=== PATIENT | female | born 1955 | race Caucasian/White ===

== ENCOUNTER → 2022-07-24 08:20 | Outpatient (BNVA) | payer MEDICARE, BC, SELFPAY | PROVIDERS: Visit Provider Student in an Organized Health Care Education/Training Program | DX: M19.041 Primary osteoarthritis, right hand (principal); M19.042 Primary osteoarthritis, left hand; M85.89 Other specified disorders of bone density and structure, multiple sites; I73.00 Raynaud's syndrome without gangrene | CPT/HCPCS: 36415; 82306; 99202 ==

== ENCOUNTER 2022-07-24 10:05 | Outpatient (REF) | payer MEDICARE, SELFPAY ==
[2022-07-30 12:01] LABS: Vitamin D 25-OH, D2 <4 ng/mL; Vitamin D 25-OH, D3 49 ng/mL; Vitamin D 25-OH, Total 49 ng/mL (30-100)
== END 2022-07-24 10:06 | disposition home or self-care (01) ==
LOC: HO.10HDL 10:05
PROVIDERS: Visit Provider Student in an Organized Health Care Education/Training Program
DX: Z13.89 Encounter for screening for other disorder (principal)
CPT/HCPCS: 36415; 82306

== ENCOUNTER 2025-06-29 13:19 | Outpatient (AMB) | payer MEDICARE, SELFPAY ==
--- OUTSIDE RECORDS SUMMARY | 2025-06-28 10:30 | XMS_ITS | Encounter Summary ---
Author Organization [place] [address] Care Team Providers Care Eap Clinician Name Role Phone Gillian Real MD Primary Care Provider [phone] Reason for Visit * Consultation (Routine) - Authorized Specialty Diagnoses / Procedures Referred By Maya giles Referred To Contact Physical Therapy Diagnoses Strain of muscle, fascia and tendon of lower back, subsequent encounter Salty Lee, [address] [place] [address] Phone: tel: fax: Cruzito Chavira, PT [address] [place] [address] Phone: tel: Referral ID Status Reason Start Date Expiration Date Visits Requested Visits Authorized [id number] Authorized Specialty Services Required 03/24/2025 03/24/2026 16 16 Encounter Details Date Type Department Care Team ([facility] Contact Info) Description 06/28/2025 10:30 AM EDT Treatment Physical Therapy [address] [id number] Cruzito Chavira, PT [address] [place] [address] Social History Tobacco Use Types Packs/Day Years Used Date Smoking Tobacco: Never Smokeless Tobacco: Never Comments Unknown Sex and Gender Information Value Date Recorded Sex Assigned at Not on file Legal Sex Female 8:21 AM EST Gender Identity Not on file Sexual Orientation Not on file documented as of this encounter Plan of Treatment Upcoming Encounters Date Type Department Care Team (Late st Contact Info) Description 08/31/2025 9:00 AM EDT Office Visit Endocrinology - [place] [address] [place] [address] Dave Howard MD [address] [place] [address] documented as of this encounter Goals Goal Patient Goal Type Associated Problems Recent Progress Patient-Stated? Author PT Lumbar spine goals General Yes Cruzito Chavira PT Note: Short term goals: (Time frame: 6 weeks) 1. Independent with the home exercises program (50%) -Pelvic corrections and Trunk Auto- Elongation. 2. Patient will be able to demonstrate conscious posture in sitting/standing/lying down at least 50% of day. 3. Patient will be able to demonstrate correct posture for 2 basic exercise positions. building supervisor goals: (Time frame: 12 weeks) 1. Independent with the home exercise program-100% 2. Patient will be able to demonstrate conscious posture in sitting/standing/lying down > 70% of the day. 3. Patient will be able to demonstrate correct posture for all basic exercise positions. documented as of this encounter Visit Diagnoses Not on filedocumented in this encounter Care Teams Eap Clinician Relationship Specialty Start Date End Date Gillian Real MD [address] [place] [address] PCP - General Internal Medicine 01/14/19 documented as of this encounter
--- OUTSIDE RECORDS SUMMARY | 2025-06-29 13:32 | XMS_ITS | Patient Health Record ---
Author Organization [facility] Address [address] [facility] [facility] [address] [place] [address] Care Team Providers Care Instrumentation Chemist Name Role Phone Gillian Real Primary Care Provider Unavailab le Allergies Allergen (clinical drug ingredient) Drug/Non Drug Allergy documented on EMR Reaction Allergy Type Onset Date Status Steroids Steroids (uncoded) Unknown Allergy A ctive Actifed Unknown Drug Allergy Active ciprofloxacin Cipro Unknown Drug Allergy Act avila Sudafed Unknown Drug Allergy Active lisinopril Lisinopril Coughing/Throat Swelling Drug Allergy Active Non-steroidal anti-inflammatory agent (FN) NSAIDs Unknown Drug Allergy Active Reason For Referral No Information Medications Medication SIG (Take, Route, Frequency, Duration) Notes Start Date End Date Status Tirosint 75 MCG 1 capsule in the mor brie on an empty stomach Orally Once a day Active Amoxicillin 500 MG 1 capsule Orally nathalia ry 8 hrs Active Losartan Potassium 50 MG 1 tablet Orally Once a day Active Econazole Nitrate 1 % 1 application Exte rnally Once a day Active Voltaren 1 % as directed Externally Active CeleBREX 100 MG 1 capsule with food Orally Once a day Active Cleocin-T 1 % 1 application Broadcast Operations Technician ally Twice a day Active Metrogel 1 % 1 application Broadcast Operations Technician ally Once a day Active Calcium Active Ciclopirox 8 % 1 application Broadcast Operations Technician ally to toenails Once a day; Duration: 365 days 03/25/2022 Active Plan Of Treatment No Information Insurance Providers Payer Name Payer Address Payer Phone Subscriber Number Group Number Insured Name Patient Relationship to Insured Coverage Start Date Coverage End Date Medicare of [place] [address] [place] [phone] [id number] Nancy Espinoza Self - patient is the insured [facility] [address] [place] [address] [id number] Nancy Espinoza Self - patient is the insured Medical (General) History Medical History History ICD Code Trochanteric Bursitis B. Tendinitis Shoulder (right) John's Thyroiditis Costochondritis Lumbar Injection - Dr. Shaggy San 01/13 Degenerative Disease Lumbosacral Spine GERD Mild Case of Shingles Surgical History Surgery Date(Month/Year) Section EGD Steroid Injection Back L Shoulder Arthroscopy [facility]
--- OUTSIDE RECORDS SUMMARY | 2025-06-29 13:32 | XMS_ITS ---
Author Name [facility] Organization Unknown History of Medication Use Medication Directions Dispensed Refills Start Date End Date Stat us Tirosint 75 mcg capsule Take 1 capsule (75 mcg total) by mouth 1 (one) time each day. 03/23/2025 active clobetasoL (TEMOVATE) 0.05 % cream APPLY IN THE MORNING AND IN THE EVENING TO REDNESS ON FEET NEEDED 11/18/2024 active clotrimazole-betametha sone (LOTRISONE) 1-0.05 % cream APPLY TOPICALLY TO AFFECTED AREA TWO TIMES A DAY FOR NOT LONGER THAN 2 WEEKS. DO NOT USE WITH ANY OCCLUSIVE DRESSINGS. 11/04/2024 active CeleBREX 100 mg capsule Take 1 capsule (100 mg total) by mouth 1 (one) time each day if needed. 09/30/2024 active estradioL (ESTRACE) 0.01 % (0.1 mg/gram) vaginal cream APPLY 1 GRAM VAGINALLY 3 TIMES PER WEEK DIRECTED 08/18/2024 active triamcinolone (KENALOG) 0.1 % ointment Apply topically. 11/20/2023 active hydroquinone 4 % emulsion Apply 1 Application topically. 10/19/2023 active gabapentin (NEURONTIN) 100 mg capsule Take 1 capsule TID. 12/30/2022 active acetaminophen (TYLENOL) 325 mg tablet Take 2 tablets (650 mg total) by mouth every 6 hours as needed. 11/17/2022 active clindamycin (Cleocin T) 1 % lotion Apply topically. 09/15/2022 activ e ECONAZOLE NITRATE TOP Apply topically. active calcium carbonate-vitamin D3 1,000 mg-20 mcg (800 unit) tablet Take 1 tablet by mouth. 04/16/2007 active calcium carbonate-vit D3-min 600 mg-10 mcg (400 unit) tablet Take 600 mg by mouth. active cholecalciferol (VITAMIN D-3) 50 mcg (2,000 unit) capsule Take 1 capsule (2,000 Units total) by mouth 1 (one) time each day. active Allergies Allergen Reaction Severity Comment Documented Date Source Statu s CIPROFLOXACIN 03/23/2025 [facility] acti ve NSAIDS (NON-STEROIDAL ANTI-INFLAMMATORY DRUG) 03/23/2025 [facility] a ctive PSEUDOEPHEDRINE HCL 03/23/2025 [facility] N active Problems Problem Status Onset Date Problem Type Date of Resolution Source Scoliosis of thoracolumbar spine, unspecified scoliosis type active EncounterDiagnosisAct CT_T HSFRAN Strain of muscle, fascia and tendon of lower back, subsequent encounter active 2025-05-02 ProblemAct [facility] S/P lumbar spinal fusion active EncounterDiagnosisAct CT_THS ALFREDO Encounters Encounter Type Encounter Reason Primary Diagnosis Location Date Ambulatory [facility] [place]/28/2025 Ambulatory Strain of muscle, fascia and tendon of lower back, subsequent encounter Strain of muscle, fascia and tendon of lower back, subsequent encounter [facility] 04/28/2025 Care Team Organization Name Specialty Phone Email Start Date End Da te [facility] 04/28/2025 [facility] 04/28/2025
--- OUTSIDE RECORDS SUMMARY | 2025-06-29 13:32 | XMS_ITS | Patient Health Record ---
[facility] Address [address] [place] [address] Care Team Providers Care Beauty Consultant Name Role Phone Gillian Real MD Primary Care Provider Viktoria Cruz Unavailable [phone] Allergies Allergen (clinical drug ingredient) Drug/Non Drug Allergy documented on EMR Reaction Allergy Type Onset Date Status nsaids - prednisone,steroids,s udafed,lisopril (uncoded) rash Allergy Active ibuprofen Advil Unknown Drug Allergy Active Aleve Unknown Drug Allergy Active aspirin Aspirin Unknown Drug Allergy Active ciprofloxacin Cipro rash Drug Allergy Act avila Motrin Unknown Drug Allergy Active Reason For Referral No Information Medications Medication SIG (Take, Route, Frequency, Duration) Notes Start Date End Date Status Calcium 600 MG 1 tablet with meals Orally Twice a day; Duration: 30 day(s) Active Daily Vitamin Active Losartan Potassium 50 MG 1 tablet Orally Once a day; Duration: 30 day(s) Active Social History Tobacco Use: Social History Observation Description Date Details (start date - stop date) Never Smoker NA - NA Tobacco Use/Smoking Question Answer Notes Are you a: nonsmoker Alcohol Screen Question Answer Notes Did you have a drink containing alcohol in the p ast year? No Points 0 Interpretation Negative Tobacco use other than smoking: Question Answer Notes Are you an other tobacco user? No Problems Problem Type SNOMED Code ICD Code Onset Dates Problem Status W/U Status Risk Notes Problem Acquired hammer toe of right foot (5590562874918 105) Other hammer toe(s) (acquired), right foot (M20.41) Active confirmed Plan Of Treatment Pending Test Test Name Order Date [id number] NAIL, 1-5 04/05/2019 Insurance Providers Payer Name Payer Address Payer Phone Subscriber Number Group Number Insured Name Patient Relationship to Insured Coverage Start Date Coverage End Date [facility] [address] [facility] [place], [place] [address] [phone] [id number] Nancy Espinoza Self - patient is the insured Medical (General) History Medical History History ICD Code High blood pressure Surgical History Surgery Date(Month/Year) shoulder surgery 2006
--- OUTSIDE RECORDS SUMMARY | 2025-06-29 13:32 | XMS_ITS | Encounter Summary ---
Author Organization [facility] Address [address] [place] [address] Phone Care Team Providers Care Workers Compensation Paralegal Name Role Phone Gillian Real MD Primary Care Provider [phone] Reason for Visit * Auth/Cert (Routine) Specialty Diagnoses / Procedures Referred By Contac t Referred To Contact Diagnoses Gastroesophageal reflux disease with esophagitis, unspecified whether hemorrhage Gastroesophageal reflux disease with esophagitis, unspecified whether hemorrhage [K21.00] Procedures IL ESOPHAGEAL MOTILITY STUDY, MANOMETRY ESOPHAGEAL MANOMETRY WITH IMPEDANCE HIGH RESOLUTION Referral ID Status Reason Start Date Expiration Date Visits Re quested Visits Authorized [id number] 1 1 Encounter Details Date Type Department Care Team (Late st Contact Info) Description 05/09/2025 Hospital Encounter [facility] Admitting Dept Virtual Department [address] [place] [address] Luis M Reinoso MD [address] [place] [phone] Social History Tobacco Use Types Packs/Day Years Used Date Smoking Tobacco: Never Assessed Education Answer Date Recorded Are you interested in more education? Not on jony e 03/06/2023 Are you concerned about learning? Not on file 03/06/2023 No 03/06/2023 No 03/06/2023 Digital Access Answer Date Recorded No 04/04/2023 No 04/04/2023 No 04/04/2023 Reliable internet access at home? Not on file 04/04/2023 Device with a working camera? Not on file Comments Unknown Sex and Gender Information Value Date Recorded Sex Assigned at Female 05/19/2022 3:12 PM EDT Legal Sex Female 2:14 PM EST Gender Identity Female 05/19/2022 3:12 PM EDT Sexual Orientation Straight 05/19/2022 3: 12 PM EDT documented as of this encounter Plan of Treatment Not on file documented as of this encounter Visit Diagnoses Not on filedocumented in this encounter Care Teams Workers Compensation Paralegal Relationship Specialty Start Date End Date Gillian Real MD [address] [address] PCP - General Internal Medicine 10/22/18 documented as of this encounter Additional Source Comments The information contained in this document represents components of the legal health record. It is not the complete legal health record.[facility]
[2025-06-29 13:39] VITALS: BMI 25.9
--- NOTE | 2025-06-29 13:39 | HO.SPINEOV ---
Vital Signs 06/29/25 13:39 Height 5 ft 3 in Weight 146 lb BMI 25.9 Intake Visit Reasons: LBP Intake Note: Mrs. Espinoza is here today c/o back pain and difficulty walking. Health Promotion Officer Required: No Allergies lisinopril Allergy (Unknown, Verified 06/29/25 13:39) cough, throat swelling ciprofloxacin (From Cipro) Adverse Reaction (Unknown, Verified 06/29/25 13:39) Unknown NSAIDS (Non-Steroidal Anti-Inflamma Adverse Reaction (Unknown, Verified 06/29/25 13:39) Unknown pseudoephedrine (From Actifed) Adverse Reaction (Unknown, Verified 06/29/25 13:39) Unknown triprolidine (From Actifed) Adverse Reaction (Unknown, Verified 06/29/25 13:39) Unknown Surgical Tape Allergy (Severe, Uncoded 06/29/25 13:44) Rash steroids Adverse Reaction (Unknown, Uncoded 07/24/22 08:26) Unknown Physical Exam Vital Signs: BMI result Body Mass Index 25.9 Assessment & Plan Assessment & Plan (1) Scoliosis (and kyphoscoliosis), idiopathic: Code(s): M41.20 - Other idiopathic scoliosis, site unspecified Category: Medical Plan Dear Dr Lee, Thank you for referring Mrs Espinoza to our office today. She is a somewhat complicated 69-year-old female with history of scoliosis, status post L5-S1 posterior lumbar interbody fusion done at [facility] by Dr. Chatterjee in 2022. That procedure was done for feeling of weakness in her right leg and back pain. After the procedure she experienced significant improvement in the back pain and the feeling in her right leg, however over the course of her recovery she is starting to notice increase in pain in other regions. Specifically the right SI joint, and whole back discomfort starting in the lumbar region radiating upward to her upper lumbar levels into the lower thoracic area. It has gradually gotten worse. She has had to accommodate for this with a brace which she uses every day as the day goes on. She also takes Celebrex, Tylenol. She underwent SI joint injections in the form of lateral branch blocks and did amazing with these. It definitely helped the SI joint pain with 100% relief for about 6 weeks or so. She comes in today for evaluation not only of her SI joint but is wondering if Dr. Pennings can do a scoliosis correction on her. She has no lower extremity radicular symptoms. All of her symptoms get aggravated with standing and walking. She has to hold onto the shopping cart to get through the grocery store etc.. PMH: History of hypertension, hypothyroidism, esophageal dysmotility, lumbar fusion L5-S1, right hip replacement, left shoulder repair. She does not report any history of cardiopulmonary disease, renal or liver disease. No history of cancer blood clots or major abdominal surgeries other than a section. Social hx: She has not smoke, drink use any recreational drugs Medications: Losartan, Tylenol, Celebrex, famotidine, thyroid replacement Allergies: Please see the [employer]Voc[employer] list Physical exam: Awake alert oriented no acute distress, very slow to stand up she walks with a kyphotic curvature in his scoliotic positioning. She has full strength of bilateral lower extremities, diminished reflexes at the patella and the Achilles. She has well healed scars in her midline lumbar as well as what look like lateral stab incisions. Imaging review: She has multiple images to review. Firstly, she has a lumbar MRI done at [facility] showing postsurgical changes at L5-S1 with what looks like good positioning of the hardware, 2 interbody cages consistent with a posterior lumbar interbody fusion. No residual central or foraminal stenosis seen. Starting above that, she develops a scoliotic curvature which appears to have the apex somewhere around L1. There is lateral listhesis of L1 on L2. She did bring a set of x-rays from [facility] with standing scoliosis imaging and this confirms it looks as though the bottom part of the thoracic spine maybe involved as well in the scoliosis. Impression: 69-year-old female presents for evaluation of 2 separate issues. The 1st reason she is here and the reason that she was sent for consult is her right SI joint has been acting up ever since she had the L5-S1 fusion at [facility]. This is responded beautifully to lateral branch blocks but unfortunately she tells me that ablation of the nerve is not permitted through her insurance so she is coming today to be evaluated for right SI joint fusion. She has had multiple injections with near 100% relief for at least [address] Hogan would agree that she is a good candidate for that. We did discuss that procedure at length including risks, benefits as well as recovery. She understands she would need to be on crutches or walker for 3 weeks for healing. With regard to the scoliosis correction, things get a little more complicated because she does have a history of osteopenia and based on the x-rays it looks to me more like in the direction of osteoporosis. I would need to get a CAT scan noncontrast lumbar spine to evaluate the integrity of her bones and I can review this with Dr. Hogan to see if he thinks she would be a good candidate for scoliosis correction. Once the CAT scan is completed, I will bring her back in the office to meet Dr. Hogan preoperatively for her SI joint fusion, and at that time they can discuss her CAT scan and see whether or not he believes she is a candidate for scoliosis correction. Thank you for allowing us to care for your patient. The total time spent with this visit with this patient was 65 minutes reviewing history, physical exam, lumbar imaging review, and implementation of treatment plan or further diagnostic testing Salty Hogan MD,PhD [facility] Orders: Orders CT lumbar spine wo IV con Today M41.20 - Other idiopathic scoliosis, site unspecified Coding Level of Care Code New Pt Level 5 (01237) Diagnoses Scoliosis (and kyphoscoliosis), idiopathic M41.20
== END 2025-06-29 15:35 | disposition home or self-care (01) ==
LOC: HO.HNS 13:20
PROVIDERS: Referring Provider Physical Medicine & Rehabilitation; Visit Provider Physician Assistant
DX: M41.20 Other idiopathic scoliosis, site unspecified (principal)
CPT/HCPCS: 99205

== ENCOUNTER → 2025-06-29 13:19 | Outpatient (BNVA) | payer MEDICARE, SELFPAY | PROVIDERS: Referring Provider Physical Medicine & Rehabilitation; Visit Provider Physician Assistant | DX: M41.20 Other idiopathic scoliosis, site unspecified (principal) | CPT/HCPCS: 99202 ==

== ENCOUNTER 2025-09-15 07:33 | Outpatient (REF) | payer MEDICARE, SELFPAY ==
--- OUTSIDE RECORDS SUMMARY | 2025-03-28 08:15 | XMS_ITS | Continuity of Care Document ---
Author Organization [facility] Address [address] [place] [address] Phone Care Team Providers Care Preschool Program Director Name Role Phone Tan LAWSON, RVT, RPDEMETRIS, Jose Manuel Unavailable U navailable Allergies, Adverse Reactions, Alerts Substance Reaction Status Criticality prednisone Active No Information PSEUDOEPHEDRINE HCL Active No Infor mation lisinopril Active No Information ciprofloxacin Active No Information Medications Medication Instructions Dosage Effective Dates (start - stop) Status Comments losartan 50 mg tablet - Active Tirosint 75 mcg capsule - Active Procedures Procedure Date Duplex Scan-extrem Veins; Uni/ CT & [place] M Inj Scleros Solut; Mx Veins 1- CT & [place] M Ultrason Guidan Needle Bx-rad- CT & [place] M Office/Outpt E&M Established 15 Mins- CT & [place] Duplex Scan-extrem Veins; Comp- CT & [place] Office/Outpt E&M Established 15 Mins- CT & [place] Duplex Scan-extrem Veins; Comp- CT & [place] Duplex Scan-extrem Veins; Uni/ CT & [place] D Inj Scleros Solut; Mx Veins 1- CT & [place] D Ultrason Guidan Needle Bx-rad- CT & [place] D Duplex Scan-extrem Veins; Uni/ CT & [place] N Inj Scleros Solut; Mx Veins 1- CT & [place] O ct Ultrason Guidan Needle Bx-rad- CT & [place] O ct Duplex Scan-extrem Veins; Uni/ CT & [place] O ct Varithena, Single Truncal Vein - CT & [place] Office/Outpt E&M Established 15 Mins- CT & [place] Duplex Scan-extrem Veins; Comp- CT & [place] No Charge For Services Advance Directives Directive Yes / No Effective Date File Name No Information Encounters Encounter Description Practice Location Reason(s) For Visit Diagnoses Date Provider Providers Copied on Encounter [facility], [address] [place] [address] Joey [address], [id number], tel:[phone] [facility] - [place] [facility] Encounter for follow-up examination after completed treatment for conditions other than malignant neoplasmVaricos e veins of left lower extremity with pain 5 Tan LAWSON RVT, JUSTO Richard. [address] [place] [address], [place], [place], [id number] , [place]. tel:[phone] Referring Provider: Gillian Real MD, [address] [place] [address], [address]. tel:[phone] [facility], [address] [place] [address] [address] [address], [id number], [place] tel:[phone] [facility] Varicose veins of left lower extremity with other complications 5 Tan LAWSON RVT, RPVI Robert. [address] [place] [address], [facility] [place], [id number] , [place]. tel:[phone] Referring Provider: Gillian Real MD, [address] [place] [address], [address]. tel:[phone] Office/Outpt E&M Established 15 Mins- [place] & [place] [facility], [address] [place] [address] Joey [address], [id number], tel:[phone] [facility] [place] [facility] Localized edemaPhlebitis and thrombophlebiti s of superficial vessels of left lower extremityVenous insufficiency (chronic) (peripheral)Lym phedema, not elsewhere classifiedEssen tial (primary) hypertension 5 Tan LAWSON RVT, JUSTO Richard. [address], [place], [id number] , [place]. [phone] Referring Provider: Gillian Real MD, [address], [facility]. tel:[phone] [facility], [address] [place] [address] Dr [address], [id number], [place] tel:[phone] [facility] - [facility] Chronic venous hypertension (idiopathic) with other complications of bilateral lower extremity 5 Tan LAWSON RVT, JUSTO Richard. [address], [place] [address], [place], [id number] , [place]. tel:[phone] Referring Provider: Gillian Real MD, [address], [facility]. tel:[phone] Office/Outpt E&M Established 15 Mins- [place] & [place] [facility], [address] [place] [address] Dr [address], [id number], [place] tel:[phone] [facility] Localized edemaVenous insufficiency (chronic) (peripheral)Pru ritus, unspecifiedEsse ntial (primary) hypertension 5 Tan LAWSON RVT, JUSTO Richard. [address], [address], [place], [id number] , [place]. [phone] Referring Provider: Gillian Real MD, [address], [facility]. tel:[phone] [facility], [address] [place] [address] Dr [address], [id number], [place] tel:[phone] [facility] Chronic venous hypertension (idiopathic) with other complications of bilateral lower extremity 5 Tan LAWSON RVT, RPVI Robert. [address] [place] [address], [place], [place], [id number] , [place]. [phone] Referring Provider: Gillian Real MD, [address] [place] [address], [facility]. tel:[phone] [place] [facility], [address] [place] [address] [facility] [address] [place], [id number], [place] [phone] [facility] for follow-up examination after completed treatment for conditions other than malignant neoplasmVaricos e veins of left lower extremity with pain 4 Tan LAWSON RVT, RPVI Robert. [address] [place] [address], [place], [place], [id number] , [place]. tel:[phone] Referring Provider: Gillian Real MD, [address] [place] [address], [facility]. tel:[phone] [place] [facility], [address] [place] [address] [facility] [place], [id number], [place] tel:[phone] [facility] Varicose veins of left lower extremity with other complications 4 Tan LAWSON RVT, RPVI Robert. [address] [place] [address], [id number] , [place]. tel:[phone] Referring Provider: Gillian Real MD, [address], [facility]. tel:[phone] [place] [facility], [address] [place] [address] Dr [address] [place], [id number], [place] tel:[phone] [facility]counter for follow-up examination after completed treatment for conditions other than malignant neoplasmPain in right lower leg 4 Tan LAWSON RVT, RPVI Robert. [address] [place] [address], [facility], [place], [id number] , [place]. tel:[phone] Referring Provider: Gillian Real MD, [address] [place] [address], [address]. tel:[phone] [place] [facility], [address] [place] [address] Dr [address] 1000[place], [id number], [place] tel:[phone] [facility] - [place] [facility] Varicose veins of right lower extremity with other complications Oct-3 0- 4 Tan LAWSON RVT, JUSTO Richard. [address] [place] [address], [facility], [place], [id number] , [place]. tel:[phone] Referring Provider: Gillian Real MD, [address] [place] [address], [address]. tel:[phone] [place] [facility], [address] [place] [address] [facility] [address] [address], [id number], [place] [phone] [facility] - [place] [facility] Encounter for follow-up examination after completed treatment for conditions other than malignant neoplasmVaricos e veins of right lower extremity with pain Oct-3 0- 4 Tan LAWSON RVT, JUSTO Richard. [address] [place] [address], [facility], [place], [id number] , [place]. [phone] Referring Provider: Gillian Real MD, [address] [place] [address], [address]. tel:[phone] [place] [facility], [address] [place] [address] [address] 1000[place], [id number], [place] tel:[phone] [facility] [place] [facility] Varicose veins of right lower extremity with other complications Oct-2 4 Tan LAWSON RVT, JUSTO Richard. [address] [place] [address], [facility], [place], [id number] , [place]. [phone] Referring Provider: Gillian Real MD, [address] [place] [address] [place] [address], [address]. tel:[phone] Office/Outpt E&M Established 15 Mins- CT & [place] [facility], [address] [place] [address] Dr [address] [address], [id number], tel:[phone] [facility] - [place] [facility] Essential (primary) hypertensionVen ous insufficiency (chronic) (peripheral)Pru ritus, unspecifiedChro nasir venous hypertension (idiopathic) with other complications of bilateral lower extremityLymphe brayan, not elsewhere classified 4 Tan LAWSON, PKT, JUSTO Richard. [address] [place] [address], [place], [place], [id number] , [place]. [phone] Referring Provider: Gillian Real MD, [address] [place] [address], [facility]. tel:[phone] [place] [facility], [address] [place] [address] Dr [address] [place], [place] [address], [id number], [place] tel:[phone] [facility] Chronic venous hypertension (idiopathic) with other complications of bilateral lower extremity 4 Tan LAWSON RVT, JUSTO Richard. [address] [place] [address], [facility] [place], [id number] , [place]. tel:[phone] Referring Provider: Gillian Real MD, [address] [place] [address], [address]. tel:[phone] [place] [facility], [address] [place] [address] Dr [address] [address], [id number], [place] tel:[phone] [facility] Encounter for cosmetic surgery 3 Juan LAWSON FACS ELVIS Eaton. [address] [place] [address], [place], [address], [place]. tel:[phone] Referring Provider: Gillian Real MD, [address] [place] [address], [address]. tel:[phone] Family History Family Member Type Diagnosis Age At Onset No Information Payers Payer name Insurance type Covered libertarian ID Authoriza tiana(s) Medicare [place] XOCHITL [id number] BCBS [place] LISA [id number] Social History Type Description Quantity Date Captured Comments Sex Female Smoking Status No Information Chief Complaint And Reason For Visit No Information Reason For Referral Reason For Referral No Information Plan Of Treatment Date Type Action Status Goal Diet education completed Goal Diet education completed Goal Diet education completed Goal Tobacco cessation counseling completed Referral Ordered: Weight management: Referral to physician timeframe: 3 Months (related to Body mass index (BMI) 26.0-26.9, adult) ordered Referral Ordered: Weight management: Referral to physician timeframe: 3 Months (related to Body mass index (BMI) 26.0-26.9, adult) ordered Referral Ordered: Weight management: Referral to physician timeframe: 3 Months (related to Body mass index (BMI) 26.0-26.9, adult) ordered History Of Present Illness Encounter Date Complaint History Of Prese nt Illness No Information Functional Status Date Functional Assessmen t No Information Instructions Date Instruction Additional Infor ayo Pre and post instruc tions reviewed and provided Related to Localized edema Patient education booklet given Related to Localized edema Lifestyle education Related to B vini mass index (BMI) 26.0-26.9, adult Giving Encouragement to exercise Related to Body mass index (BMI) 26.0-26.9, adult Diet education Related to Body mass index (BMI) 26.0-26.9, adult Lifestyle education Related to B vini mass index (BMI) 26.0-26.9, adult Giving Encouragement to exercise Related to Body mass index (BMI) 26.0-26.9, adult Diet education Related to Body mass index (BMI) 26.0-26.9, adult Compression stocking usage as conservative measure Related to Localized edema Pre and post instruc tions reviewed and provided Related to Localized edema Patient education booklet given Related to Chronic venous hypertension (idiopathic) with other complications of bilateral lower extremity Giving Encouragement to exercise Related to Body mass index (BMI) 26.0-26.9, adult Lifestyle education Related to B vini mass index (BMI) 26.0-26.9, adult Diet education Related to Body mass index (BMI) 26.0-26.9, adult Assessments Type Assessment Date No Information Patient Care Teams Name Effective Dates (start - stop) Status Members No Information
--- OUTSIDE RECORDS SUMMARY | 2025-09-12 09:30 | XMS_ITS | Encounter Summary ---
Author Organization [facility] [place] [address] Care Team Providers Care Certified Dietary Manager Name Role Phone Julisa Olvera MD Primary Care Provider [phone] Reason for Visit * Reason Comments Follow-up Left side rib pain s moustapha 2 weeks ago Encounter Details Date Type Department Care Team (Late st Contact Info) Description 09/12/2025 9:30 AM EST Office Visit Internal Medicine - [place] [address] [place] [id number] Julisa Olvera MD [address] [place], [place] [id number] Fracture of left ninth rib (Primary Dx); White coat syndrome with diagnosis of hypertension Social History Tobacco Use Types Packs/Day Years Used Date Smoking Tobacco: Never Smokeless Tobacco: Never Alcohol Use Standard Drinks/Week Comments Never 0 (1 standard drink = 0.6 oz pur e alcohol) Housing Instability Answer Date Recorde d Are you worried that in the next 2 months you may not have stable housing? No 09/01/2025 Food Access & Nutrition Answer Date Rec orded Do you have access to a vari ety of food including fruits and vegetables? Yes 09/01/2025 Access to Healthcare Answer Date Record ed Within the last 3 months, ho w many times did you visit the emergency department for your medical care? 0 09/01/2025 Health Literacy Answer Date Recorded How often do you need to hav e someone help you when you read instructions, pamphlets, or other written material from your doctor or pharmacy? Never 09/01/2025 Caregiver: How often do you need to have someone help you when you read instructions, pamphlets, or other written material from your doctor or pharmacy? Not on file 09/01/2025 Financial Risk Answer Date Recorded How hard is it for you to pa y for the very basics like food, housing, medical care, and air conditioning / heating? Not very hard 09/01/2025 Transportation Answer Date Recorded Has the lack of transportati on kept you from meetings, work, or from getting things needed for daily living? No Has the lack of transportati on kept you from medical appointments or from getting medications? No 09/01/2025 Social Isolation Answer Date Recorded How often do you feel lonely or isolated from th ose around you? Never 09/01/2025 Food Risk Answer Date Recorded Within the past 12 months we worried whether our food would run out before we got money to buy more. Never true 09/01/2025 Within the past 12 months th e food we bought just didn't last and we didn't have money to get more. Never true 09/01/2025 Dependent Care Answer Date Recorded Do you need help finding or paying for care for your loved ones. For example, director of early childhood education or elderly care for an older adult? No 09/01/2025 Education Answer Date Recorded Do you think completing more education or training, like finishing a GED, going to college, or learning a trade, would be helpful for you? No 09/01/2025 Employment and Income Answer Date Recor ded During the last four weeks, have you been actively looking for work? No 09/01/2025 Living Situation Answer Date Recorded What is your living situation? Unrecognized valu e 09/01/2025 Comments No Sex and Gender Information Value Date Recorded Sex Assigned at Not on file Legal Sex Female 8:21 AM EST Gender Identity Not on file Sexual Orientation Not on file documented as of this encounter Last Filed Vital Signs Vital Sign Reading Time Taken Comments Blood Pressure 170/86 09/12/2025 9:50 AM EST Man ual BP Pulse 86 09/12/2025 9:07 AM EST Temperature 36.7 C (98.1 F) 09/12/2025 9:07 AM EST Respiratory Rate - - Oxygen Saturation 98% 09/12/2025 9:07 AM EST Inhaled Oxygen Concentration - - Weight 68.5 kg (151 lb) 09/12/2025 9:07 AM EST Height 160 cm (5' 3 ) 09/12/2025 9:07 AM EST Body Mass Index 26.75 09/12/2025 9:07 AM EST documented in this encounter Progress Notes * Julisa Olvera MD - 09/12/2025 9:52 AM ESTAssociated Problem(s): White coat syndrome with diagnosis of hypertension -Elevated, she does have white coat HTN and is currently in pain as well from wedge compression fracture and rib fracture. * Julisa Olvera MD - 09/12/2025 9:50 AM ESTAssociated Problem(s): Fracture of left ninth rib - Osteoporosis likely contributed to the rib fracture, even without trauma. - Pain management is crucial. - Reviewed ED notes from [facility], unable to see radiology report - Pain relief reported with Celebrex and Tylenol; lidocaine patches ineffective due to poor adhesion. - Suggested use of Robaxin as a muscle relaxant. - Cautioned against using a back brace; permitted to use other support device that does not exert pressure on the rib. - Recommended application of a warm compress for additional relief. - Instructed to monitor for symptoms such as difficulty breathing, increased shortness of breath, or worsening pain, and seek immediate medical attention if these occur. - May consider using tramadol if current medications are insufficient, but should be aware of potential side effects including drowsiness and dizziness. * Julisa Olvera MD - 09/12/2025 9:30 AM EST Images from the original note were not included. [address] [place] [address] [address] [place] [address] Nancy Espinoza 1955 70 y.o. Date: 09/12/2025 Chief Complaint: Chief Complaint Patient presents with Follow-up Left side rib pain since 2 weeks ago I have obtained verbal consent from Nancy Espinoza prior to the recording. I have advised Nancy Espinoza that she may refuse a recording and required the recording to be turned off at any time. SUBJECTIVE: History of Present Illness The patient presents for evaluation of a left ninth rib fracture. Left Ninth Rib Fracture - Initially evaluated at an urgent care facility, which subsequently referred her to the emergency room. - CT scan performed on 08/2025 revealed a fracture in her left ninth rib. - Reports no history of falls or trauma. - Pain management primarily with Celebrex, taken as needed. - Uses lidocaine patches, reports difficulty in their application due to poor adhesion. - Prescription for tramadol provided by the urgent care center has not yet been filled. - Has Robaxin at home, a muscle relaxant used for a previous T11-12 fracture, but has not used it for her current condition. - Considering the use of Robaxin for her rib fracture. Back Condition and Scoliosis - Owns back belts, one prescribed for her T11 fracture, questioning their appropriateness for her current condition. - Informed that her rib fracture is nondisplaced and curious about the expected healing time. - Reports difficulty in walking and shortness of breath, attributed to her back condition and scoliosis. - Experiences difficulty in talking while walking with her , necessitating frequent stops. - Advised to allow 3 months for her T11 fracture to heal, wondering if the same timeline applies toher rib fracture. - Using a back brace for approximately 10 weeks, finds it helpful. - Previously consulted with neurosurgery for a wedge compression fracture, recommended the use of the back brace. Pain Management - Taking Celebrex daily, with a total dose of 700 mg yesterday, divided into three doses. - Has not required a fourth dose. - Has not yet used Robaxin for her current condition. - Reports manageable pain upon waking up in the morning, requires some support for her back. Additional Information - Does not recall any specific incident that could have caused the rib fracture, mentions a sudden turn while sitting. - Working with another provider at [facility] in [place], who has conducted extensive blood work. - Follow-up appointment scheduled in a couple of weeks. - Reports that her shortness of breath has remained consistent since the onset of her symptoms. CURRENT MEDICATIONS: Current Medications[1] ALLERGIES: Allergies[2] PAST MEDICAL HISTORY: Medical History[3] PAST SURGICAL HISTORY: Surgical History[4] FAMILY HISTORY: Family History[5] SOCIAL HISTORY: Social History[6] ROS: Negative except as mentioned above OBJECTIVE: Vital Signs Visit Vitals BP (!) 170/86 (BP Location: Right arm, Patient Position: Sitting, BP Cuff Size: Adult) Comment: Manual BP Pulse 86 Temp 36.7 ??C (98.1 ??F) (Temporal) Ht 1.6 m (63 ) Wt 68.5 kg (151 lb) SpO2 98% BMI 26.75 kg/m?? OB Status Postmenopausal Smoking Status Never BSA 1.72 m?? PHYSICAL EXAM: Physical Exam Constitutional: Appearance: Normal appearance. Cardiovascular: Rate and Rhythm: Normal rate and regular rhythm. Pulses: Normal pulses. Heart sounds: Normal heart sounds. Pulmonary: Effort: Pulmonary effort is normal. Breath sounds: Normal breath sounds. Chest: Neurological: Mental Status: She is alert. ASSESSMENT/PLAN: Fracture of left ninth rib - Osteoporosis likely contributed to the rib fracture, even without trauma. - Pain management is crucial. - Reviewed ED notes from [facility], unable to see radiology report - Pain relief reported with Celebrex and Tylenol; lidocaine patches ineffective due to poor adhesion. - Suggested use of Robaxin as a muscle relaxant. - Cautioned against using a back brace; permitted to use other support device that does not exert pressure on the rib. - Recommended application of a warm compress for additional relief. - Instructed to monitor for symptoms such as difficulty breathing, increased shortness of breath, or worsening pain, and seek immediate medical attention if these occur. - May consider using tramadol if current medications are insufficient, but should be aware of potential side effects including drowsiness and dizziness. White coat syndrome with diagnosis of hypertension -Elevated, she does have white coat HTN and is currently in pain as well from wedge compression fracture and rib fracture. Follow-up: Scheduled for a follow-up visit in November 2025, call if symptoms worsen. Julisa Olvera MD [address] [place] [address], [address] [place] [address] [1] Current Outpatient Medications Medication Sig Dispense Refill acetaminophen (TYLENOL) 325 mg tablet Take 2 tablets (650 mg total) by mouth every 6 hours as needed. amoxicillin (AMOXIL) 500 mg tablet TAKE 4 TABLETS ONCE 30 MINUTES PRIOR TO DENTAL PROCEDURE RECOMMENDED BYDENTAL OFFICE calcium carbonate-vit D3-min 600 mg-10 mcg (400 unit) tablet Take 600 mg by mouth. calcium carbonate-vitamin D3 1,000 mg-20 mcg (800 unit) tablet Take 1 tablet by mouth. CeleBREX 100 mg capsule Take 1 capsule (100 mg total) by mouth 1 (one) time each day if needed. cholecalciferol (VITAMIN D-3) 50 mcg (2,000 unit) capsule Take 1 capsule (2,000 Units total) by mouth 1 (one) time each day. clindamycin (Cleocin T) 1 % lotion Apply topically. clobetasoL (TEMOVATE) 0.05 % cream APPLY IN THE MORNING AND IN THE EVENING TO REDNESS ON FEET NEEDED clotrimazole-betamethasone (LOTRISONE) 1-0.05 % cream APPLY TOPICALLY TO AFFECTED AREA TWO TIMES A DAY FOR NOT LONGER THAN 2 WEEKS. DO NOT USE WITH ANY OCCLUSIVE DRESSINGS. coenzyme Q-10 (Co Q-10) 100 mg capsule Take 1 capsule (100 mg total) by mouth 1 (one) time each day. ECONAZOLE NITRATE TOP Apply topically. estradioL (ESTRACE) 0.01 % (0.1 mg/gram) vaginal cream APPLY 1 GRAM VAGINALLY 3 TIMES PER WEEK DIRECTED famotidine (PEPCID) 40 mg tablet Take 1 tablet (40 mg total) by mouth. fluocinonide (LIDEX) 0.05 % cream APPLY TO AFFECTED AREA S) OF FINGERS AND TOES TWO TIMES A DAY FORUP TO 2 WEEKS AT A TIME DIRECTED gabapentin (NEURONTIN) 100 mg capsule Take 1 capsule TID. hydroquinone 4 % emulsion Apply 1 Application topically. losartan (COZAAR) 100 mg tablet Take 1 tablet (100 mg total) by mouth 1 (one) time each day. multivit with calcium,iron,min (MULTIPLE VITAMIN, WOMENS ORAL) Take by mouth. triamcinolone (KENALOG) 0.1 % ointment Apply topically. Tirosint 75 mcg capsule Take 1 capsule (75 mcg total) by mouth 1 (one) time each day. 90 capsule 1 No current facility-administered medications for this visit. 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 Scoliosis 2022 [4] Past Surgical History: Procedure Laterality Date SECTION, LOW TRANSVERSE 1994 JOINT REPLACEMENT Rt Hip 10/2019 SPINE SURGERY L5-S1 11/2022 [5] Family History Problem Relation Name Age of Onset Other (Other: varicose veins) Mother Halle Hypertension Mother Halle [6] Social History Tobacco Use Smoking status: Never Smokeless tobacco: Never Substance Use Topics Alcohol use: Never Drug use: Never documented in this encounter Plan of Treatment Upcoming Encounters Date Type Department Care Team (Late st Contact Info) Description 09/26/2025 2:30 PM EST Office Visit Internal Medicine - [place] [address] [place] [phone] Julisa Olvera MD [address] [place] [address] 09/29/2025 3:00 PM EST Office Visit Endocrinology - [place] [address] [place] [phone] Alejandra De Luna MD [address] [place] [address] 11/21/2025 10:30 AM EST Office Visit Internal Medicine - [place] [address] [place] [phone] Julisa Olvera MD [address] [place] [address] documented as of this encounter Goals Goal Patient Goal Type Associated Problems Recent Progress Patient-Stated? Author PT Lumbar spine goals General Yes Cruzito Chavira, PT Note: Short term goals: (Time frame: 6 weeks) 1. Independent with the home exercises program (50%) -Pelvic corrections and Trunk [employer]- Elongation. 2. Patient will be able to demonstrate conscious posture in sitting/standing/lying down at least 50% of day. 3. Patient will be able to demonstrate correct posture for 2 basic exercise positions. snf goals: (Time frame: 12 weeks) 1. Independent with the home exercise program-100% 2. Patient will be able to demonstrate conscious posture in sitting/standing/lying down > 70% of the day. 3. Patient will be able to demonstrate correct posture for all basic exercise positions. documented as of this encounter Visit Diagnoses Diagnosis Fracture of left ninth rib- Primary White coat syndrome with diagnosis of hypertension documented in this encounter Historical Medications * This list may reflect changes made after this encounter. fluocinonide (LIDEX) 0.05 % cream APPLY TO AFFECTED AREA S) OF FINGERS AND TOES TWO TIMES A DAY FOR UP TO 2 WEEKS AT A TIME DIRECTED 08/29/2025 added in this encounter Additional Health Concerns Assessment Noted Time PHQ-9 Depression Total Score: 0 09/01/20 9:45 AM EDT documented as of this encounter Care Teams Certified Dietary Manager Relationship Specialty Start Date End Date Julisa Olvera MD [address] [place] [id number] PCP - General Family Medicine 09/01/25 documented as of this encounter
--- NOTE | ~2025-09-15 | CT_ITS ---
CLINICAL HISTORY: M41.20 - Other idiopathic scoliosis, site unspecified --- Additional Notes or Special Instructions: please include up to T11 CT lumbar spine without contrast Comparison: None provided Findings: Grade 1 retrolisthesis of L1 over L2, L2 over L3, L3 over L4, L4 over L5. Moderate osteopenia. Prior dorsal spinal fixation of the L5-S1 with pedicle screws and interlocking rods with intervertebral fusion hardware. Grade 2 anterolisthesis of L5 over S1. Chronic bilateral L5 pars defects. Wedge compression fracture T11 vertebral body with less than 70% vertebral body height loss with posterior retropulsion of the superior endplate 0.2 cm. No significant degenerative change. L1-2: Severe left and moderate right spondylitic neural foraminal stenosis. L2-3: Severe left and moderate right spondylitic neural foraminal stenosis. L3-4: Moderate to severe bilateral spondylitic neural foraminal stenosis. L4-5: Mild left and [id number] right spondylitic neural foraminal stenosis. L5-S1: Prior L5 laminotomy. Moderate to severe bilateral spondylitic neural foraminal stenosis with impingement of the exiting L5 nerve roots. Visualized abdominal contents moderate calcified atherosclerotic disease of the abdominal aorta.. 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 Lumbar dextroscoliosis. IMPRESSION: 1. Wedge compression fracture of T11 vertebral body with less than 70% height loss and 0.2 cm posterior retropulsion of the superior endplate. 2. Grade 2 anterolisthesis of L5 over S1 with prior L5-S1 dorsal spinal fixation and intervertebral fusion hardware. 3. Chronic bilateral L5 pars defects. 4. Severe left and moderate right neural foraminal stenosis at L1-2 and L2-3. 5. Moderate to severe bilateral neural foraminal stenosis at L3-4 and L5-S1. 6. Grade 1 retrolisthesis of L1 over L2, L2 over L3, L3 over L4, and L4 over L5. 7. Moderate osteopenia. 8. Lumbar dextroscoliosis. This document has been electronically signed by: Jet Ga MD on 09/15/2025 18:27:06
--- OUTSIDE RECORDS SUMMARY | 2025-09-15 07:35 | XMS_ITS | Patient Health Record ---
Author Organization [facility] Address [address] [facility] [address] [facility] [address] [place] [address] Care Team Providers Care Metal Treater Name Role Phone Gillian Real Primary Care [...] day Active Cleocin-T 1 % 1 application Stave And Bolt Equalizer ally Twice a day Active Metrogel 1 % 1 application Stave And Bolt Equalizer ally Once a day Active Calcium Active Ciclopirox 8 % 1 application Stave And Bolt Equalizer ally to toenails Once a day; Duration: 365 days 03/25/2022 Active Plan Of Treatment No Information Insurance Providers Payer Name Payer Address Payer Phone Subscriber Number Group Number Insured Name Patient Relationship to Insured Coverage Start Date Coverage End Date [employer] of [place] [address] [place] [phone] [id number] Nancy Espinoza Self - patient is the insured [facility] [address] [place] [address] [id number] Nancy Espinoza Self - patient is the insured Medical (General) History Medical History History ICD Code Trochanteric Bursitis B. Tendinitis Shoulder (right) John's Thyroiditis Costochondritis Lumbar Injection - Dr. Shaggy San 01/13 Degenerative Disease Lumbosacral Spine GERD Mild Case of Shingles Surgical History Surgery Date(Month/Year) Section EGD Steroid Injection Back L Shoulder Arthroscopy [facility]
--- OUTSIDE RECORDS SUMMARY | 2025-09-15 07:35 | XMS_ITS | Encounter Summary ---
Author Organization [facility] [place] [address] Care Team Providers Care Truck Unloader Name Role Phone Julisa Olvera MD Primary Care Provider [phone] Encounter Details Date Type Department Care Team (Late st Contact Info) Description 09/12/2025 Results Follow-Up Endocrinology - [place] [address] [place] [address] Alejandra De Luna MD [address] [place] [address] Social History Tobacco Use Types Packs/Day Years [...] care for your loved ones. For example, child care leader or elderly care for an older adult? [...] - [place] [address] [place] [id number] Julisa Olvera MD [address] [place] [address] 09/29/2025 3:00 PM EST Office Visit Endocrinology - [address] [phone] Alejandra De Luna MD [address] [place] [address] 11/21/2025 10:30 AM EST Office Visit Internal Medicine - [place] [address] [place] [phone] Julisa Olvera MD [address] [place] [address] documented as of this encounter Goals Goal [...] correct posture for 2 basic exercise positions. retirement goals: (Time frame: 12 weeks) 1. Independent with the home exercise program-100% 2. Patient will be able to demonstrate conscious posture in sitting/standing/lying down > 70% of the day. 3. Patient will be able to demonstrate correct posture for all basic exercise positions. documented as of this encounter Visit Diagnoses Not on filedocumented in this encounter Additional Health Concerns Assessment Noted Time PHQ-9 Depression Total Score: 0 09/01/20 9:45 AM EDT documented as of this encounter Care Teams Truck Unloader Relationship Specialty Start Date End Date Julisa Olvera MD [address] [place] [address] PCP - General Family Medicine 09/01/25 documented as of this encounter
--- OUTSIDE RECORDS SUMMARY | 2025-09-15 07:35 | XMS_ITS | Encounter Summary ---
Author Organization [facility] Address [address] [place] [address] Phone Care Team Providers Care Ship Surveyor Name Role Phone Gillian Real MD Primary Care Provider [phone] Reason for Visit * Auth/Cert (Routine) Specialty Diagnoses / Procedures Referred By Contac t Referred To Contact Diagnoses Gastroesophageal reflux disease with esophagitis, unspecified whether hemorrhage Gastroesophageal reflux disease with esophagitis, unspecified whether hemorrhage [K21.00] Procedures [place] ESOPHAGEAL MOTILITY STUDY, MANOMETRY ESOPHAGEAL MANOMETRY WITH IMPEDANCE HIGH RESOLUTION Referral ID Status Reason Start Date Expiration Date Visits Re quested Visits Authorized [id number] 1 1 Encounter Details Date Type Department Care Team (Late st Contact Info) Description 05/09/2025 Hospital Encounter [facility] Endoscopy Admitting Dept Virtual Department [address] [place] [address] Luis M Reinoso MD [address] [place] [address] Social History Tobacco Use Types Packs/Day Years [...] on filedocumented in this encounter Care Teams Ship Surveyor Relationship Specialty Start Date End Date Gillian Real MD [address] [address] PCP - General Internal Medicine 10/22/18 documented as of this encounter Additional Source Comments The information contained in this document represents components of the legal health record. It is not the complete legal health record.[facility]
--- OUTSIDE RECORDS SUMMARY | 2025-09-15 07:35 | XMS_ITS | Clinical Summary ---
Author Organization [facility] [address] [place] [address] [place] [phone] Phone Care Team Providers Care Tank Farm Operator Name Role Phone Julisa Olvera MD Primary Care Provider [phone] Allergies Active Allergy Reactions Criticality Noted Date Comments Ciprofloxacin 03/23/2025 Nsaids (Non-Steroidal Anti-I nflammatory Drug) 03/23/2025 Pseudoephedrine Hcl 03/23/2025 Medications calcium carbonate-vitam in D3 1,000 mg-20 mcg (800 unit) tablet Take 1 tablet by mouth. 7 Active ECONAZOLE NITRATE TOP Apply topically. 2 Active hydroquinone 4 % emulsion Apply 1 Application topically. 3 Active multivit with calcium,iron,mi n (MULTIPLE VITAMIN, WOMENS ORAL) Take by mouth. Activ e acetaminophen (TYLENOL) 325 mg tablet Take 2 tablets (650 mg total) by mouth every 6 hours as needed. 3 Active calcium carbonate-vit D3-min 600 mg-10 mcg (400 unit) tablet Take 600 mg by mouth. Active CeleBREX 100 mg capsule Take 1 capsule (100 mg total) by mouth 1 (one) time each day if needed. 4 Active cholecalciferol (VITAMIN D-3) 50 mcg (2,000 unit) capsule Take 1 capsule (2,000 Units total) by mouth 1 (one) time each day. Active clindamycin (Cleocin T) 1 % lotion Apply topically. 2 Active clobetasoL (TEMOVATE) 0.05 % cream APPLY IN THE MORNING AND IN THE EVENING TO REDNESS ON FEET NEEDED 5 Active clotrimazole-be tamethasone (LOTRISONE) 1-0.05 % cream APPLY TOPICALLY TO AFFECTED AREA TWO TIMES A DAY FOR NOT LONGER THAN 2 WEEKS. DO NOT USE WITH ANY OCCLUSIVE DRESSINGS. 4 Active estradioL (ESTRACE) 0.01 % (0.1 mg/gram) vaginal cream APPLY 1 GRAM VAGINALLY 3 TIMES PER WEEK DIRECTED 4 Active gabapentin (NEURONTIN) 100 mg capsule Take 1 capsule TID. 3 Active triamcinolone (KENALOG) 0.1 % ointment Apply topically. 4 Active Tirosint 75 mcg capsule Take 1 capsule (75 mcg total) by mouth 1 (one) time each day. 90 capsule 1 5 Active losartan (COZAAR) 100 mg tablet Take 1 tablet (100 mg total) by mouth 1 (one) time each day. Active famotidine (PEPCID) 40 mg tablet Take 1 tablet (40 mg total) by mouth. 5 Active amoxicillin (AMOXIL) 500 mg tablet TAKE 4 TABLETS ONCE 30 MINUTES PRIOR TO DENTAL PROCEDURE RECOMMENDED BYDENTAL OFFICE 5 Active coenzyme Q-10 (Co Q-10) 100 mg capsule Take 1 capsule (100 mg total) by mouth 1 (one) time each day. Active fluocinonide (LIDEX) 0.05 % cream APPLY TO AFFECTED AREA S) OF FINGERS AND TOES TWO TIMES A DAY FOR UP TO 2 WEEKS AT A TIME DIRECTED 5 Active Active Problems Problem Noted Date Diagnosed Date Fracture of left ninth rib 09/12/2025 Assessment & Plan (09/12/2025 9:50 AM EST): - Osteoporosis likely contributed to the rib fracture, even without trauma. - Pain management is crucial. - Reviewed ED notes from [facility], unable to see radiology report - Pain [...] potential side effects including drowsiness and dizziness. Encounter to establish care 09/01/2025 Assessment & Plan (09/01/2025 12:46 PM EDT): Patient is a 70 y.o. female with past medical history of scoliosis, hx of right hip surgery, postablation hypothyroidism who presents to establish care. Previous Primary Care: at [facility] Reviewed medical history and medications with patient. Follows with endocrinology, neurosurgery White coat syndrome with diagnosis of hypertensi on 09/01/2025 Assessment & Plan (09/12/2025 9:52 AM EST): -Elevated, she does have white coat HTN and is currently in pain as well from wedge compression fracture and rib fracture. Assessment & Plan (09/01/2025 12:47 PM EDT): - Blood pressure readings significantly elevated during office visits compared to home measurements, suspect white coat hypertension. - Hypertension appears well-managed under current treatment regimen with losartan 100 mg daily. - Advised to monitor blood pressure on a regular basis at home Wedge compression fracture o f T11-T12 vertebra, initial encounter for closed fracture (CMS/HCC V24, CMS/HCC V28) 09/01/2025 Assessment & Plan (09/01/2025 12:49 PM EDT): - Recently had an MRI and waiting for results. - Follow-up with neurosurgery on 09/05/2025. Hyperlipidemia 09/01/2025 Assessment & Plan (09/01/2025 12:53 PM EDT): -Previous PCPP started her on cholesterol medication but she not understand why so she hasn't started medication. Awaiting records. Postablative hypothyroidism 08/31/2025 Assessment & Plan (09/01/2025 12:47 PM EDT): - History of thyroid ablation and currently on Tirosint 75 mcg. - Hoop Riveting Machine Operator monitoring thyroid function. Osteoporosis 08/31/2025 Assessment & Plan (09/01/2025 12:48 PM EDT): - Hoop Riveting Machine Operator discussed medication options, she is currently not on medications. Scoliosis of thoracolumbar spine 06/29/2025 S/P lumbar fusion 06/29/2025 Strain of muscle, fascia and tendon of lower back, subsequent encounter 05/02/2025 Encounters Date Type Department Care Team Description 09/12/2025 9:30 AM EST Office Visit Internal Medicine - [facility] [address] [place] [address] Julisa Olvera MD Fracture of left ninth rib (Primary Dx); White coat syndrome with diagnosis of hypertension 09/12/2025 Results Follow-Up [address] [phone] Alejandra De Luna MD 09/01/2025 10:00 AM EDT Office Visit Internal Medicine - [facility] [address] [place] [address] Julisa Olvera MD Encounter to establish care (Primary Dx); Primary hypertension; Wedge compression fracture of T11-T12 vertebra, initial encounter for closed fracture (CMS/HCC V24, CMS/HCC V28); Osteoporosis, unspecified osteoporosis type, unspecified pathological fracture presence; Postablative hypothyroidism; Hyperlipidemia, unspecified hyperlipidemia type 08/31/2025 9:00 AM EDT Office Visit [address] [phone] Alejandra De Luna MD Postablative hypothyroidism (Primary Dx); Age-related osteoporosis with current pathological fracture with routine healing; Age-related osteoporosis with current pathological fracture, other site, initial encounter for fracture 06/28/2025 10:30 AM EDT Treatment Physical Therapy - [address] [phone] Cruzito Chavira, PT Strain of muscle, fascia and tendon of lower back, subsequent encounter (Primary Dx); Scoliosis of thoracolumbar spine, unspecified scoliosis type; S/P lumbar fusion from Last 3 Months Immunizations Immunization Administration Dates Next Due COVID-19 (Moderna/Spikevax) 12yo and older 08/07 Influenza Quadravalent, 0.5m l (Fluzone High-dose) 65yo and older 08/07/2022 Influenza Quadravalent, MDCK , 0.5ml, preservative free (Flucelvax) 6mo and older 07/23/2023 Influenza Quadrivalent, 0.5m l, preservative free (Fluarix; FluLaval; Fluzone) ages 6mo and older (Afluria) 3yo and older 09/05/2021,09/21/2020 Influenza trivalent, 0.5mL, preservative free (Fluarix; FluLaval; Fluzone) ages 6mo and older (Afluria) 3 years and older 2024 Moderna (age 6mo & older) Bi valent, COVID-19, 0.5 mL or 0.25 mL dosage 08/07/2022 Pneumococcal conjugate 13 va lent (Prevnar 13, PCV13) 2mo and older 08/29/2020 Pneumococcal conjugate 20 va lent (Prevnar 20, PCV 20) 2mo and older 07/23/2023,07/23/2023 Pneumococcal polysaccharide 23 valent (Pneumovax 23) 2yo and older 03/04/2022 Tdap Tetanus diptheria acell ular pertussis (Boostrix; Adacel) 7yo and older 05/20/2023,04/01/2016,10/17/2008 Zoster recombinant (Shingrix ) 19yo and older 10/17/2021,07/26/2021 Surgical History Surgery Date Site/Laterality Comments SECTION, LOW TRANSVERSE 1994 JOINT REPLACEMENT Rt Hip 10/2019 SPINE SURGERY L5-S1 11/2022 Medical History Medical History Date Comments Postablative hypothyroidism 08/31/2025 Scoliosis 2022 Hypertension 2020 Hypercholesteremia 2024 Family History Medical History Relation Name Comments Hypertension Mother Halle Other: varicose veins Mother Halle Relation Name Status Comments Father Mother Halle Social History Tobacco Use Types Packs/Day Years Used Date Smoking Tobacco: Never Smokeless Tobacco: Never Tobacco Cessation:Counseling Given: Not Answered Alcohol Use Standard Drinks/Week Comments Never 0 [...] for your loved ones. For example, child therapist or elderly care for an older adult? [...] on file Sexual Orientation Not on file Obstetrics History Last Filed Vital Signs Vital Sign Reading [...] Mass Index 26.75 09/12/2025 9:07 AM EST Plan of Treatment Upcoming Encounters Date Type Department Care Team (Late st Contact Info) Description 09/26/2025 2:30 PM EST Office Visit Internal Medicine - [facility] [address] [place] [phone] Julisa Olvera MD [address] [place] [address] 09/29/2025 3:00 PM EST Office Visit Endocrinology - [facility] [address] [place] [phone] Alejandra De Luna MD [address] [place] [phone] 11/21/2025 10:30 AM EST Office Visit Internal Medicine - [facility] [address] [place] [phone] Julisa Olvera MD [address] [place] [address] [phone] (work) Health Maintenance Due Date Last Done Comments Breast Cancer Screening 1955 Colorectal Cancer Screening: Colonoscopy 1955 Cholesterol Screening (Lipid Panel) 02/22/2025 Falls Risk Assessment 02/22/2025 Hepatitis C Screening 02/22/2025 Medicare Annual Wellness Visit 02/22/2025 Influenza Vaccine (#1) 2025 , 07/23/2023, 08/07/2022, Additional history exists COVID-19 Vaccine ( season) 2026 07/28/2025, 11/18/2024, 08/24/2023, Additional history exists Social Influencers of Health Screening 09/01/2026 09/01/2025 Hypertension/CHF/CAD Annual BMP Blood Test 09/04/2026 09/04/2025, 11/17/2022, 11/16/2022, Additional history exists RSV Immunization Adult Patients (1 - 1-dose 75+ series) 2030 DTaP,Tdap,and Td Vaccines (4 - Td or Tdap) 05/20/2033 05/20/2023, 04/01/2016, 10/17/2008 Osteoporosis Screening (Bone Density Screening) 01/25/2034 01/26/2024, 01/26/2024, 08/06/2022 Zoster Vaccines Completed 10/17/2021, 07/26/2021 Pneumococcal Vaccine: 50+ Years Completed 07/23/2023, 07/23/2023, 03/04/2022, Additional history exists Depression Screening Completed 09/01/2025 HIB Vaccines Aged Out No longer eligi ble based on patient's age to complete this topic HPV Vaccines Aged Out No longer eligi ble based on patient's age to complete this topic Hepatitis A Vaccines Aged Out No long er eligible based on patient's age to complete this topic Hepatitis B Vaccines Aged Out No long er eligible based on patient's age to complete this topic IPV Vaccines Aged Out No longer eligi ble based on patient's age to complete this topic MMR Vaccines Aged Out No longer eligi ble based on patient's age to complete this topic Meningococcal ACWY Vaccine Aged Out N o longer eligible based on patient's age to complete this topic Meningococcal B Vaccine Aged Out No l onger eligible based on patient's age to complete this topic RSV Immunization Patients Under 20 months Aged Out No longer eligible based on patient's age to complete this topic Varicella Vaccines Aged Out No longer eligible based on patient's age to complete this topic Goals Goal Patient Goal Type Associated Problems Recent Progress Patient-Stated? Author PT Lumbar spine goals General Yes Cruzito Chavira, CARLA Note: Short term goals: (Time frame: 6 weeks) 1. Independent with the home exercises program (50%) -Pelvic corrections and Trunk Auto- Elongation. 2. Patient will be able to demonstrate conscious posture in sitting/standing/lying down at least 50% of day. 3. Patient will be able to demonstrate correct posture for 2 basic exercise positions. shelter goals: (Time frame: 12 weeks) 1. Independent with the home exercise program-100% 2. Patient will be able to demonstrate conscious posture in sitting/standing/lying down > 70% of the day. 3. Patient will be able to demonstrate correct posture for all basic exercise positions. Procedures Procedure Name Priority Date/Time Associated Diagnosis Comments NE PROTEIN ELECTROPHORETIC FRACTIONATION & QUANTITATION SERUM Routine 09/04/2025 11:30 AM EDT Age-related osteoporosis with current pathological fracture with routine healing PROTEIN, TOTAL Routine 09/04/2025 11:30 AM EDT Age-related osteoporosis with current pathological fracture with routine healing THYROID STIMULATING HORMONE Routine 09/04/2025 11:30 AM EDT Postablative hypothyroidism THYROXINE FREE Routine 09/04/2025 11:30 AM EDT Postablative hypothyroidism TRIIODOTHYRONINE FREE Routine 09/04/2025 11:30 AM EDT Postablative hypothyroidism COMPREHENSIVE METABOLIC PANEL Routine 09/04/2025 11:30 AM EDT Age-related osteoporosis with current pathological fracture with routine healing VITAMIN D 25 HYDROXY Routine 09/04/2025 11:30 AM EDT Age-related osteoporosis with current pathological fracture with routine healing PARATHYROID HORMONE INTACT Routine 09/04/2025 11:30 AM EDT Age-related osteoporosis with current pathological fracture with routine healing PROTEIN ELECTROPHORESIS, SERUM Routine 09/04/2025 11:30 AM EDT Age-related osteoporosis with current pathological fracture with routine healing COLLAGEN TYPE 1, C-TELOPEPTIDE Routine 09/04/2025 11:30 AM EDT Age-related osteoporosis with current pathological fracture with routine healing Age-related osteoporosis with current pathological fracture, other site, initial encounter for fracture CALCIUM, URINE, 24H Routine 09/04/2025 1 1:29 AM EDT Age-related osteoporosis with current pathological fracture with routine healing CREATININE, URINE, 24H Routine 11:29 AM EDT Age-related osteoporosis with current pathological fracture with routine healing from Last 3 Months Results * PATHOLOGIST REVIEW PROTEIN ELECTROPHORESIS (09/04/2025 11:30 AM EDT) Pathologist Interpretation 09/07/2025 2:10 PM EDT [facility] Blood Venous blood specimen / Unknown Venipuncture / Unknown 09/04/2025 11:30 AM EDT 09/04/2025 11:30 AM EDT us Alejandra De Luna MD LAB BLOOD ORDERABLES Final Result [facility] [address] [place] [address], * Collagen type 1, c-telopeptide (09/04/2025 11:30 AM EDT) Collagen Type 1, C-Telopeptide (CTx) 586 pg/mL 09/08/2025 4:44 PM EDT [facility] Comment: Reference Range for Females Premenopausal 121-747 pg/mL Postmenopausal 189-1003 pg/mL The assay and reference ranges were updated by the branch controller, with new methodology effective December 20, 2024. Providers should consider this when comparing measurements before and after December 20, 2024 in the same patient. Test performed at [facility], [address] , [place] [address] Guerita Kuo MD, PhD - Payable Representative Blood Venous blood specimen / Unknown Venipuncture / Unknown 09/04/2025 11:30 AM EDT 09/04/2025 11:30 AM EDT Alejandra De Luna MD LAB BLOOD ORDERABLES Final Result [facility] [address] [place] [address] * Vitamin D 25 hydroxy (09/04/2025 11:30 AM EDT) Vit D, 25-Hydroxy 31.4 30.0 - 80.0 ng/mL LAB CHEMISTRY METHOD 09/04/2025 5:26 PM EDT [facility] Blood Venous blood specimen / Unknown Venipuncture / Unknown 09/04/2025 11:30 AM EDT 09/04/2025 11:30 AM EDT Alejandra De Luna MD LAB BLOOD ORDERABLES Final Result [facility] [address] [place] [address], * Triiodothyronine free (09/04/2025 11:30 AM EDT) T3, Free 243 230 - 420 pcg/dL LAB CHEMISTRY METHOD 09/04/2025 6:25 PM EDT [facility] Blood Venous blood specimen / Unknown Venipuncture / Unknown 09/04/2025 11:30 AM EDT 09/04/2025 11:30 AM EDT us Alejandra De Luna MD LAB BLOOD ORDERABLES Final Result Performing Organization Address [facility]/ZIP Co de Phone Number [facility] [address] [place] [address], [place] [phone] * Thyroid stimulating hormone (09/04/2025 11:30 AM EDT) [facility] TSH 2.28 0.40 - 4.00 mcIU/mL LAB CHEMISTRY METHOD 09/04/2025 6:25 PM EDT [facility] Blood Venous blood specimen / Unknown Venipuncture / Unknown 09/04/2025 11:30 AM EDT 09/04/2025 11:30 AM EDT us Alejandra De Luna MD LAB BLOOD ORDERABLES Final Result Performing Organization Address [facility] de Phone Number [facility] [address] [place] [address], [place] [phone] * Thyroxine free (09/04/2025 11:30 AM EDT) [facility] Free T4 1.22 0.70 - 1.80 ng/dL LAB CHEMISTRY METHOD 09/04/2025 5:26 PM EDT [facility] Blood Venous blood specimen / Unknown Venipuncture / Unknown 09/04/2025 11:30 AM EDT 09/04/2025 11:30 AM EDT us Alejandra De Luna MD LAB BLOOD ORDERABLES Final Result Performing Organization Address [facility]/ZIP Co de Phone Number [facility] [address] [place] [address], [place] [phone] * (ABNORMAL) Protein electrophoresis, serum (09/04/2025 11:30 AM EDT) [facility] Total Protein 6.9 6.0 - 8.0 g/dL LAB CHEMISTRY METHOD 5 2:10 PM EDT [facility] Albumin, Serum 4.0 2.9 - 4.1 g/dL LAB CHEMISTRY METHOD 5 2:10 PM EDT [facility] Alpha 1 Globulin (g/dL) 0.2 0.1 - 0.5 g/dL LAB CHEMISTRY METHOD 5 2:10 PM EDT [facility] Alpha 2 Globulin (g/dL) 1.2 0.7 - 1.5 g/dL LAB CHEMISTRY METHOD 5 2:10 PM EDT [facility] Beta (g/dL) 1.0 0.7 - 1.5 g/dL LAB CHEMISTRY METHOD 5 2:10 PM EDT [facility] Gamma Globulin (g/dL) 0.5(L) 0.7 - 1.9 g/dL LAB CHEMISTRY METHOD 5 2:10 PM EDT [facility] SPEP Interpretation No M-Sanya seen. Hypogammaglobinemia. May be associated with lymphoproliferative disorder, immunoglobulin loss, or protein losing enteropathy. LAB CHEMISTRY METHOD 2:10 PM EDT [facility] Blood Venous blood specimen / Unknown Venipuncture / Unknown 09/04/2025 11:30 AM EDT 09/04/2025 11:30 AM EDT us Alejandra De Luna MD LAB BLOOD ORDERABLES Final Result [facility] [address] [place] [address], * Protein, total (09/04/2025 11:30 AM EDT) Pathologist [facility] Total Protein 6.9 6.0 - 8.0 g/dL LAB CHEMISTRY METHOD 09/04/2025 5:31 PM EDT [facility] Blood Venous blood specimen / Unknown Venipuncture / Unknown 09/04/2025 11:30 AM EDT 09/04/2025 11:30 AM EDT Alejandra De Luna MD LAB BLOOD ORDERABLES Final Result Performing Organization Address [facility]/ZIP Co de Phone Number [facility] [address] [place] [address], [place] [phone] * Parathyroid hormone intact (09/04/2025 11:30 AM EDT) Pathologist [facility] PTH 67.2 18.5 - 88.0 pcg/mL LAB CHEMISTRY METHOD 09/04/2025 5:26 PM EDT [facility] Blood Venous blood specimen / Unknown Venipuncture / Unknown 09/04/2025 11:30 AM EDT 09/04/2025 11:30 AM EDT Alejandra De Luna MD LAB BLOOD ORDERABLES Final Result Performing Organization Address [facility]/ZIP Co de Phone Number [facility] [address] [place] [address], [place] [phone] * Comprehensive metabolic panel (09/04/2025 11:30 AM EDT) Sodium 141 133 - 145 mmol/L LAB CHEMISTRY METHOD 09/04/2025 5:00 PM EDT [facility] Potassium 3.7 3.5 - 5.5 mmol/L LAB CHEMISTRY METHOD 09/04/2025 5:00 PM EDT [facility] Chloride 105 96 - 110 mmol/L LAB CHEMISTRY METHOD 09/04/2025 5:00 PM EDT [facility] CO2 27 21 - 32 mmol/L LAB CHEMISTRY METHOD 09/04/2025 5:00 PM EDT [facility] Anion Gap 9 3 - 11 LAB CHEMISTRY METHOD 09/04/2025 5:00 PM [facility] Glucose 97 70 - 100 mg/dL LAB CHEMISTRY METHOD 09/04/2025 5:00 PM [facility] BUN 15 5 - 25 mg/dL LAB CHEMISTRY METHOD 09/04/2025 5:00 PM [facility] Creatinine 0.79 0.50 - 1.10 mg/dL LAB CHEMISTRY METHOD 09/04/2025 5:00 PM [facility] eGFR 81 >=60 mL/min/1. 73m2 LAB CHEMISTRY METHOD 09/04/2025 5:00 PM [facility] Comment:Calculation based on the Chronic Kidney Disease Epidemiology Collaboration (CKD-EPI) equation refit without adjustment for race. BUN/Creatinine Ratio 19.0 LAB CHEMISTRY METHOD 09/04/2025 5:00 PM [facility] Calcium 9.9 8.5 - 10.5 mg/dL LAB CHEMISTRY METHOD 09/04/2025 5:00 PM [facility] AST (SGOT) 20 10 - 42 unit/L LAB CHEMISTRY METHOD 09/04/2025 5:00 PM [facility] ALT (SGPT) 27 10 - 60 unit/L LAB CHEMISTRY METHOD 09/04/2025 5:00 PM [facility] Alkaline Phosphatase 87 42 - 121 unit/L LAB CHEMISTRY METHOD 09/04/2025 5:00 PM [facility] Total Protein 6.8 6.0 - 8.0 g/dL LAB CHEMISTRY METHOD 09/04/2025 5:00 PM [facility] Albumin 4.3 3.2 - 5.0 g/dL LAB CHEMISTRY METHOD 09/04/2025 5:00 PM [facility] Total Bilirubin 0.6 0.0 - 1.4 mg/dL LAB CHEMISTRY METHOD 09/04/2025 5:00 PM EDT [facility] Blood Venous blood specimen / Unknown Venipuncture / Unknown 09/04/2025 11:30 AM EDT 09/04/2025 11:30 AM EDT us Alejandra De Luna MD LAB BLOOD ORDERABLES Final Result Performing Organization Address [facility]/ZIP Co de Phone Number [facility] [address] [place] [address], [place] [phone] * (ABNORMAL) Calcium, urine, 24H (09/04/2025 11:29 AM EDT) Calcium, Ur 14.0 mg/dL LAB CHEMISTRY METHOD 09/04/2025 3:41 PM [facility] Calcium, 24H Urine 406(H) 50 - 400 mg/24 hr LAB CHEMISTRY METHOD 09/04/2025 3:41 PM [facility] Urine Volume 2,900 mL LAB CHEMISTRY METHOD 09/04/2025 3:41 PM [facility] Collection Interval, Ur 24 hr LAB CHEMISTRY METHOD 09/04/2025 3:41 PM [facility] Urine Urine specimen from urethra / Unknown Non-blood Collection / Unknown 09/04/2025 11:29 AM EDT 09/04/2025 11:29 AM EDT us Alejandra De Luna MD LAB URINE ORDERABLES Final Result Performing Organization Address City/[facility]/ZIP Co de Phone Number [facility] [address] [place] [address], [place] [phone] * Creatinine, urine, 24H (09/04/2025 11:29 AM EDT) Creatinine, Urine 31.0 mg/dL LAB CHEMISTRY METHOD 09/04/2025 3:41 PM [facility] Creatinine, 24H Ur 899 800 - 2,000 mg/24 Hr LAB CHEMISTRY METHOD 09/04/2025 3:41 PM EDT [facility] Urine Volume 2,900 mL LAB CHEMISTRY METHOD 09/04/2025 3:41 PM EDT [facility] Collection Interval, Ur 24 hr LAB CHEMISTRY METHOD 09/04/2025 3:41 PM EDT [facility] Urine Urine specimen from urethra / Unknown Non-blood Collection / Unknown 09/04/2025 11:29 AM EDT 09/04/2025 11:29 AM EDT us Alejandra De Luna MD LAB URINE ORDERABLES Final Result [facility] [address] [place] [address], [place] [phone] from Last 3 Months Insurance MEDICARE [facility] Care Teams Tank Farm Operator Relationship Specialty Start Date End Date Julisa Olvera MD [address] [place] [address] PCP - General Family Medicine 09/01/25
--- OUTSIDE RECORDS SUMMARY | 2025-09-15 07:36 | XMS_ITS | Patient Health Record ---
[facility] Address [address] [place] [address] Care Team Providers Care Rail Layer Name Role Phone Gillian Real MD Primary Care Provider Viktoria Cruz Unavailable [phone] Allergies Allergen (clinical drug ingredient) Drug/Non Drug [...] Problem Acquired hammer toe of right foot ([id number] 105) Other hammer toe(s) (acquired), right foot (M20.41) Active confirmed Plan Of Treatment Pending Test Test Name Order Date 31430-[id number] NAIL, 1-5 04/05/2019 Insurance Providers Payer Name Payer Address Payer Phone Subscriber Number Group Number Insured Name Patient Relationship to Insured Coverage Start Date Coverage End Date [facility] [address] [facility] [place], [place] [id number] Nancy Espinoza Self - patient is the insured Medical (General) History Medical History History ICD Code High blood pressure Surgical History Surgery Date(Month/Year) shoulder surgery 2006
--- OUTSIDE RECORDS SUMMARY | 2025-09-15 07:36 | XMS_ITS | Encounter Summary ---
Author Organization [facility] Address [address] [place] [address] Phone Care Team Providers Care Maintenance Service Dispatcher Name Role Phone Gillian Real MD Primary Care Provider [phone] [phone] Encounter Details Date Type Department Care Team (Late st Contact Info) Description 06/03/[address], [facility] Imaging - [address], [address] [place] [id number] Social History Tobacco Use Types Packs/Day Years Used Date Smoking Tobacco: Never Assessed Comments Unknown Sex and Gender Information Value [...] on filedocumented in this encounter Care Teams Maintenance Service Dispatcher Relationship Specialty Start Date End Date Gillian Real MD [address] [address] PCP - General Internal Medicine 10/22/18 documented as of this encounter Additional Source Comments The information contained in this document represents components of the legal health record. It is not the complete legal health record.[facility]
--- OUTSIDE RECORDS SUMMARY | 2025-09-15 07:36 | XMS_ITS | Data Portability ---
Author Organization [place] [facility], Allergy Address [address] [place] [address] Care Team Providers Care Account Services Associate Name Role Phone ELVIGALINDO TorrezSHIRAZ Primary Care Provider Assessment Encounter Date Assessment Date Assessment LastModified by Organization Details LastModified Time 07/06/2024 07/06/2024 68 year old female presents for cerumen removal. Cerumen impaction removed bilaterally. Bilateral TMs are intact. Follow up as needed. [email or web address] Not available 07/06/2024 09:38:38 06/08/2025 06/08/2025 69 year old female presents for cerumen removal. Cerumen impaction removed bilaterally. Bilateral TMs are intact. Audiometric testing was offered today, but patient declined as she subjectively has no concerns about her hearing. She will follow-up yearly for cerumen removal, or sooner with concerns. [email or web address] Not available 06/08/2025 09:52:54 Plan of Treatment Reminders Order Date Submit Date Provider Last Modified By Organization Details Last Modified Time Details Appointments None record ed. Lab None record ed. Referral None record ed. Procedures None record ed. Surgeries None record ed. Imaging None record ed. Medication Orders None record ed. Patient TargetsNo targets recorded. Patient InstructionsNo instructions recorded. Reason for Referral None Reported. Results Created Date Observation Date Name Description Value Unit Range Abnormal Flag Note LastModifiedBy Organization Detail LastModifiedTime 06/29/2005/23/2020 imagi ng/di agnos tic resul t No observ ation record ed. [email or web address] Not Available 02:45:33 Result Notes None recorded. Problems Name Problem SNOMED Code Status Onset Date Resolution Date Notes Provider Name and Address Organization Details Recorded Time Posterior rhinorrhe a 39938118 Active 2016 Postnasal drip; Note: Date Diagnosed : 11/11/2016 8:56 AM (R09.82) Not Available formerly [facility] 4 02:51:07 Gastroeso phageal reflux disease without esophagit is 123146988 Active 2016 Gastro-es ophageal reflux disease without esophagit is; Note: Date Diagnosed : 11/11/2016 9:00 AM (K21.9) Not Available formerly [facility] 4 02:51:08 Impacted cerumen of bilateral ears 92512264188 48858 Active 2016 Impacted cerumen, bilateral ; Note: Date Diagnosed : 11/11/2016 8:55 AM (H61.23) Not Available formerly [facility] 4 02:51:06 Abnormal auditory perceptio n 26621135 Active 2016 Other abnormal auditory perceptio ns, right ear; Note: Date Diagnosed : 11/11/2016 8:58 AM (H93.291) Not Available formerly [facility] 4 02:51:06 Sensorine ural hearing loss of bilateral ears 758921943 Active 2019 Sensorine ural hearing loss, bilateral ; Note: Date Diagnosed : 05/23/2020 1:06 PM (H90.3) Not Available formerly [facility] 4 02:51:10 Impacted cerumen in left ear 93529053807 67508 Active 2019 Impacted cerumen, left ear; Note: Date Diagnosed : 05/23/2020 1:29 PM (H61.22) Not Available formerly [facility] 4 02:51:08 Temporoma ndibular joint disorder 63105487 Active 2019 Other specified disorders of temporoma ndibular joint; Note: Date Diagnosed : 06/01/2020 2:59 PM (M26.69) Not Available formerly [facility] 4 02:51:10 Disorder of right Eustachia n tube 85415239843 78777 Active 2019 Other specified disorders of Eustachia n tube, right ear; Note: Date Diagnosed : 06/01/2020 2:52 PM (H69.81) Not Available [facility] 4 02:51:10 Problem Notes None recorded. Procedures Surgical History Date Name Laterality Status Provider Name and Address Organization Details Recorded Time 5 Cerumen removal without microscope bilat completed JAMAL TOMLINSON PA-C [address] [facility] [address], [place], [address], [facility] - [facility] 06/08/2025 09:10:33 4 Cerumen removal without microscope bilat completed JAMAL TOMLINSON PA-C [address] [facility],[address], [place], [address], [facility] 07/06/2024 09:08:52 Imaging Results None recorded. Procedure Notes None recorded. Medical Equipment None Reported. Allergies Allergen ID Allergen Name Allergen Category Reaction Reaction Severity Criticality Documentation Date Start Date Code Code System Note Provider Name and Address Organization Details Recorded Time 849279 prednison e medicatio n other Not available Not available 03/22/2024 8640 RxNorm React ion: unkno wn, unspe cifie d;; Not Available formerly [facility] 4 01:12:57 928899 Non-stero idal anti-infl ammatory agent (substanc e) medicatio n other Not available Not available 03/22/2024 04878 5008 SNOMED React ion: unkno wn, unspe cifie d;; Not Available formerly [facility] 4 01:13:00 Medications Name Sig Start Date Stop Date Status Note LastModified by Organization Details LastModified Time losartan 50 mg tablet TAKE 1.5 TABLET ONCE DAILY active Not Available Not Available No t Available amoxicill in 500 mg capsule TAKE 4 CAPSULES 1 HOUR BEFORE INJECTIO N active Not Available Not Available No t Available oxybutyni n chloride ER 10 mg tablet,ex tended release 24 hr active Not Available Not Available Not Available hydroquin one 4 % topical cream APPLY IN THE MORNING AND IN THE EVENING TO BROWN SPOTS ON FACE AND HANDS FOR 2 TO 3 MONTHS APPLY SPARINGL Y AND AVOID SURROUND ING SKIN APPLY active Not Available Not Available No t Available phenazopy ridine 200 mg tablet TAKE ONE TABLET BY MOUTH EVERY 8 HOURS NEEDED active Not Available Not Available No t Available famotidin e 40 mg tablet TAKE ONE TABLET BY MOUTH TWICE A DAY active Not Available Not Available No t Available clobetaso l 0.05 % topical cream APPLY IN THE MORNING AND IN THE EVENING TO REDNESS ON FEET NEEDED active Not Available Not Available No t Available sulfameth oxazole 800 mg-trimet hoprim 160 mg tablet TAKE ONE TABLET BY MOUTH TWICE A DAY DIRECTED active Not Available Not Available No t Available TobraDex 0.3 %-0.1 % eye ointment APPLY TO UPPER LEFT EYE LID TWO TIMES A DAY FOR 1 WEEK THEN BEDTIME ONLY FOR 1 WEEK THEN STOP 06/05 completed Not Available Not Available Not Available amoxicill in 500 mg tablet TAKE 4 TABLETS ONCE 30 MINUTES PRIOR TO DENTAL PROCEDUR E RECOMMEN DED BYDENTAL OFFICE active Not Available Not Available No t Available ciclopiro x 8 % topical solution APPLY 1 DROP TO NAILS DAILY REMOVE EXCESS WEEKLY WITH RUBBING ALCOHOL active Not Available Not Available No t Available cephalexi n 500 mg capsule TAKE ONE CAPSULE BY MOUTH THREE TIMES A DAY 06/05 completed Not Available Not Available Not Available triamcino lone acetonide 0.1 % topical ointment APPLY TOPICALL Y EVERY MORNING AND EVERY EVENING active Not Available Not Available No t Available clotrimaz ole-betam ethasone 1 %-0.05 % topical cream APPLY TOPICALL Y TO AFFECTED AREA TWO TIMES A DAY FOR NOT LONGER THAN 2 WEEKS. DO NOT USE WITH ANY OCCLUSIV E DRESSING S. active Not Available Not Available No t Available oxybutyni n chloride ER 5 mg tablet,ex tended release 24 hr TAKE ONE TABLET BY MOUTH EVERY DAY active Not Available Not Available No t Available lisinopri l 5 mg tablet 2016 active Medicati on ID: [id number] B rand Name: lisinopr il Send Method: E-Prescr ibed Sub s Allowed: subs OK Medic ationGen ericName : lisinopr il Not Available Not Available Not Available furosemid e 20 mg tablet TAKE ONE TABLET BY MOUTH EVERY DAY active Not Available Not Available No t Available estradiol 0.01% (0.1 mg/gram) vaginal cream APPLY 1 GRAM VAGINALL Y 3 TIMES PER WEEK DIRECTED active Not Available Not Available No t Available celecoxib 100 mg capsule TAKE 2 CAPSULES BY MOUTH EVERY MORNING AND EVERY EVENING active Not Available Not Available No t Available ondansetr on 4 mg disintegr ating tablet DISSOLVE 1 TABLET UNDER THE TONGUE EVERY 8 HOUR NEEDED FOR NAUSEA active Not Available Not Available No t Available cefdinir 300 mg capsule TAKE ONE CAPSULE BY MOUTH TWICE A DAY active Not Available Not Available No t Available losartan 100 mg tablet TAKE 1 TABLET DAILY active Not Available Not Available No t Available doxycycli ne hyclate 100 mg tablet TAKE ONE TABLET BY MOUTH EVERY MORNING AND EVERY EVENING FOR 10 DAYS active Not Available Not Available No t Available Calcium-5 00 500 mg (as calcium carbonate 1,250 mg) tablet 2016 active Medicati on ID: [id number] B rand Name: Calcium 500 Send Method: E-Prescr ibed Sub s Allowed: subs OK [facility] : Calcium 500 Not Available Not Available Not Available nitrofura ntoin monohydra te/macroc rystals 100 mg capsule TAKE ONE CAPSULE BY MOUTH TWICE A DAY active Not Available Not Available No t Available GaviLyte- G 236 gram-22.7 4 gram-6.74 gram-5.86 gram oral solution DRINK ENTIRE CONTAINE R DIRECTED active Not Available Not Available No t Available Tirosint 75 mcg capsule TAKE 1 CAPSULE ONCE DAILY active Not Available Not Available No t Available Vitamin D3 50 mcg (2,000 unit) capsule 2016 active Medicati on ID: [id number] B rand Name: Vitamin D3 Send Method: E-Prescr ibed Sub s Allowed: subs OK Medic [facility] ericName : Vitamin D3 Not Available Not Available Not Available Vitals Date Recorded Body height Body mass index (BMI) Body weight Provider Name and Address Organization Details Last Updated DateTime 06/08/2025 160.02 cm 26 kg/m2 41022.08 g Nereyda Liang [facility] 06/08/2025 09:21:06 Date Recorded Body height Body mass index (BMI) Body weight Provider Name and Address Organization Details Last Updated DateTime 07/06/2024 160.02 cm 26 kg/m2 00768.08 g Nereyda Liang [facility] 07/06/2024 09:08:38 Social History None recorded. Functional Status None recorded. Mental Status None recorded. Family History Nothing Reported. Medical History No medical history recorded. Gynecological HistoryNo gynecological history recorded. Obstetrics History GPAL:G 0 P 0 0 0 0 Past Encounters Encounter ID Performer Location Encounter Start Date Encounter Closed Date Diagnosis/Indication Diagnosis SNOMED-CT Code Diagnosis ICD10 Code Diagnosis IMO Codes Diagnosis Note [id number] JAMAL TOMLINSON PA-C [facility] [address] [place] [address] 07/06/2024 08:58:52 07/06/2024 09:21:42 Impacted cerumen of bilateral ears 1528515300 859155 H61.23 [id number] JAMAL TOMLINSON PA-C [facility] [address] [place] [address] 06/08/2025 08:56:24 06/08/2025 09:41:38 Impacted cerumen of bilateral ears 0506730066 199676 H61.23 Health Concerns Section Related Observation LastModified by Organization Detai ls LastModified Time None Recorded Concern Status LastModified by Organization Details LastModified Time None Recorded Advance Directives Directive None Recorded Payers Insurance Date Sequence Insurance Name Policy Number Policy Camara Covered Member ID Camara Member ID Guarantor Name 06/08/2025 2 [facility] Nancy L [place] [id number] Nancy L [place] 06/08/2025 1 [place] Nancy L Alexis [id number] Nancy L Alexis 06/11/2025 2 [place] [id number] Nancy L [place] [id number] Nancy L Alexis Notes Date Note Type Note Provider Name and Address Organization Details Recorded Time 07/06/2024 text/html ROS as noted in the HPI 68 year old female presents for cerumen removal. No concerns today. DAQUAN ULLOA MD [address] [place] [address],[address], [address], [facility] - [facility] 07/06/2024 12:55:55 06/08/2025 text/html ROS as noted in the [facility] 69 year old female presents for cerumen removal. Reports intermittent ear blockage, but denies otalgia, otorrhea, or changes in her hearing. MONIK BONE MD [address] [place] [address],[address], [address], [facility] - [facility] 06/08/2025 19:54:07 OBGyn Episode No OBEpisode recorded.
--- OUTSIDE RECORDS SUMMARY | 2025-09-15 07:36 | XMS_ITS | Encounter Summary ---
Author Organization [facility] Address [address] [place] [address] Phone Care Team Providers Care Pulpwood Buyer Name Role Phone Gillian Real MD Primary Care Provider [phone] [phone] Encounter Details Date Type Department Care Team (Late st Contact Info) Description 05/09/2025 Procedure Pass [facility] Endoscopy Admitting Dept Virtual Department [address] [place] [address] Social History Tobacco Use Types Packs/Day Years [...] on filedocumented in this encounter Care Teams Pulpwood Buyer Relationship Specialty [place] [address] [place] [address] PCP - General Internal Medicine 10/22/18 documented as of this encounter Additional Source Comments The information contained in this document represents components of the legal health record. It is not the complete legal health record.[facility]
--- OUTSIDE RECORDS SUMMARY | 2025-09-15 07:36 | XMS_ITS | Clinical Summary ---
Author Organization [facility] Address [address] [place] [address] Phone Care Team Providers Care Lead Worker Of Housekeeping And Laundry Name Role Phone Gillian Real MD Primary Care Provider [phone] [phone] Social History Tobacco Use Types Packs/Day Years [...] Orientation Straight 05/19/2022 3: 12 PM EDT Last Filed Vital Signs Vital Sign Reading Time Taken Comments Blood Pressure - - Pulse - - Temperature - - Respiratory Rate - - Oxygen Saturation - - Inhaled Oxygen Concentration - - Weight 70.8 kg (156 lb) 07/08/2022 3:00 PM EDT Height 160 cm (5' 3 ) 07/08/2022 3:00 PM EDT Body Mass Index 27.63 07/08/2022 3:00 PM EDT Plan of Treatment Health Maintenance Due Date Last Done Comments Adult Td,Tdap Booster 1955 LIPID PANEL 1955 DEPRESSION SCREENING 1967 SMOKING Hx and SMOKELESS TOBACCO SCREENING 1968 HEPATITIS C SCREENING 1973 MAMMOGRAM 1995 COLOGUARD 2000 COLONOSCOPY 2000 COLORECTAL CANCER SCREENING 2000 FIT TEST 2000 FOBT 2000 SIGMOIDOSCOPY 2000 VIRTUAL COLONOSCOPY 2000 PNEUMOCOCCAL VACCINES (50+ years) (1 of 1 - PCV) 2005 ZOSTER VACCINES (1 of 2) 2005 OSTEOPOROSIS SCREENING INITI AL (ONE-TIME) 2020 INFLUENZA VACCINE (#1) 2025 COVID-19 VACCINE (3 - 2024-2 6 season) 2025 01/11/2021, 12/14/2020 RSV VACCINE (1 - 1-dose 75+ series) 2030 HEPATITIS A VACCINES Aged Out No long er eligible based on patient's age to complete this topic HIB VACCINES Aged Out No longer eligi ble based on patient's age to complete this topic IPV VACCINES Aged Out No longer eligi ble based on patient's age to complete this topic MENINGOCOCCAL VACCINES (ACWY) Aged Out No longer eligible based on patient's age to complete this topic MENINGOCOCCAL VACCINES (B) Aged Out N o longer eligible based on patient's age to complete this topic Medical Devices Not on file Insurance MEDICARE PART A & B [facility] MEDEX SUPPLEMENT MEDICARE PART A & B [facility] MEDEX SUPPLEMENT MEDICARE PART A & B [employer] MEDEX SUPPLEMENT MEDICARE PART A & B [employer] MEDEX SUPPLEMENT MEDICARE PART A & B [employer] MEDEX SUPPLEMENT MEDICARE PART A & B [employer] MEDEX SUPPLEMENT MEDICARE PART A & B [employer] MEDEX SUPPLEMENT MEDICARE PART A & B [employer] MEDEX SUPPLEMENT MEDICARE PART [facility] & [facility]IC[facility] PART A & B [employer] MEDEX SUPPLEMENT Care Teams Lead Worker Of Housekeeping And Laundry Relationship Specialty Start Date End Date Gillian Real MD [address] [place] [address] PCP - General Internal Medicine 10/22/18 Additional Source Comments The information contained in this document represents components of the legal health record. It is not the complete legal health record.[facility]
== END 2025-09-15 07:34 | disposition home or self-care (01) ==
LOC: HO.CT 07:33
PROVIDERS: Visit Provider Physician Assistant
DX: M41.20 Other idiopathic scoliosis, site unspecified (principal)
CPT/HCPCS: 72131

== ENCOUNTER → 2025-09-15 07:35 | Outpatient (BNV) | payer MEDICARE, SELFPAY | PROVIDERS: Visit Provider Radiology Diagnostic Radiology | DX: S22.080A Wedge compression fracture of T11-T12 vertebra, initial encounter for closed fracture (principal); M48.061 Spinal stenosis, lumbar region without neurogenic claudication; M41.86 Other forms of scoliosis, lumbar region; M85.89 Other specified disorders of bone density and structure, multiple sites | CPT/HCPCS: 72131 ==

== ENCOUNTER 2025-09-22 11:20 | Outpatient (AMB) | payer MEDICARE, SELFPAY ==
--- NOTE | 2025-09-22 11:36 | HO.SPINEOV ---
Intake Visit Reasons: CT f/up Intake Note: Ms. Klein is here today to F/u on the results to her CT. Java Manager Required: No Allergies lisinopril Allergy (Unknown, Verified 06/29/25 13:39) cough, throat swelling ciprofloxacin (From Cipro) Adverse Reaction (Unknown, Verified 06/29/25 13:39) Unknown NSAIDS (Non-Steroidal Anti-Inflamma Adverse Reaction (Unknown, Verified 06/29/25 13:39) Unknown pseudoephedrine (From Actifed) Adverse Reaction (Unknown, Verified 06/29/25 13:39) Unknown triprolidine (From Actifed) Adverse Reaction (Unknown, Verified 06/29/25 13:39) Unknown Surgical Tape Allergy (Severe, Uncoded 06/29/25 13:44) Rash steroids Adverse Reaction (Unknown, Uncoded 07/24/22 08:26) Unknown Assessment & Plan Assessment & Plan (1) Scoliosis (and kyphoscoliosis), idiopathic: Code(s): M41.20 - Other idiopathic scoliosis, site unspecified Category: Medical Plan Mrs klein came back in the office today for follow-up for evaluation of possible scoliosis correction, and right SI joint fusion. Dr. Hogan and I reviewed her CT with her. There are number of different pertinent findings. 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 She has the scoliosis that we know about, but has very thin bones and in fact has a compression fracture in her lower thoracic spine which is new. She has very poor bone mineralization of her lumbar spine suggestive of osteoporosis. She is working with an call specialist about this. Dr. Hogan explained unfortunately that because of the quality for bones he would not be able to offer scoliosis correction. Obviously because the SI joint is already fused itself, there is no role for SI joint fusion. Total amount of time spent in this visit was 20 minutes in discussion of symptoms, lumbar CT imaging results and subsequent plan of care Salty Hogan MD,PhD [facility] Coding Level of Care Code Est Pt Level 3 (86430) Diagnoses Scoliosis (and kyphoscoliosis), idiopathic M41.20
--- OUTSIDE RECORDS SUMMARY | 2025-09-22 17:27 | XMS_ITS | Patient Health Record ---
Author Organization [facility] Address [address] [facility] [address] [place] [address] Care Team Providers Care Investor Relations Director Name Role Phone Gillian Real Primary Care [...] day Active Cleocin-T 1 % 1 application Big Data Developer ally Twice a day Active Metrogel 1 % 1 application Big Data Developer ally Once a day Active Calcium Active Ciclopirox 8 % 1 application Big Data Developer ally to toenails Once a day; Duration: 365 days 03/25/2022 Active Plan Of Treatment No Information Insurance Providers Payer Name Payer Address Payer Phone Subscriber Number Group Number Insured Name Patient Relationship to Insured Coverage Start Date Coverage End Date [employer] [place] [address] [place] [phone] [id number] Nancy Espinoza Self - patient is the insured [facility] [address] [place] [address] [id number] Nancy Espinoza Self - patient is the insured Medical (General) History Medical History History ICD Code Trochanteric Bursitis B. Tendinitis Shoulder (right) John's Thyroiditis Costochondritis Lumbar Injection - Dr. Shaggy San 01/13 Degenerative Disease Lumbosacral Spine GERD Mild Case of Shingles Surgical History Surgery Date(Month/Year) Section EGD Steroid Injection Back L Shoulder Arthroscopy [facility]
--- OUTSIDE RECORDS SUMMARY | 2025-09-22 17:28 | XMS_ITS | Encounter Summary ---
Author Organization [facility] [place] [address] Care Team Providers Care Adult Psychiatrist Name Role Phone Julisa Olvera MD Primary Care Provider [phone] Encounter Details Date Type Department Care Team (Late st Contact Info) Description 09/12/2025 Results Follow-Up Endocrinology - [place] [address] [place] [address] Alejandra De Luna MD [address] [place] [address] Social History Tobacco Use Types Packs/Day Years [...] do you feel lonely or isolated from ose around you? Never 09/01/2025 Food Risk [...] your loved ones. For example, child care assistant or elderly care for an older adult? [...] Care Team (Late st Contact Info) Description 09/29/2025 3:00 PM EST Office Visit Endocrinology - [place] [address] [place] [address] Alejandra De Luna MD [address], [place] 11/21/2025 10:30 AM EST Office Visit Internal Medicine - [place] [address] [place] [phone] Julisa Olvera MD [address] [place] [address] documented as of this encounter Goals Goal [...] correct posture for 2 basic exercise positions. FCI goals: (Time frame: 12 weeks) 1. Independent [...] Time PHQ-9 Depression Total Score: 0 09/01/20 25 9:45 AM EDT documented as of this encounter Care Teams Adult Psychiatrist Relationship Specialty Start Date End Date Julisa Olvera MD [address] [place] [address] PCP - General Family Medicine 09/01/25 documented as of this encounter
--- OUTSIDE RECORDS SUMMARY | 2025-09-22 17:28 | XMS_ITS | Clinical Summary ---
Author Organization [facility] [address] [place] [address] [place] [phone] Phone Care Team Providers Care Operation Shift Supervisor Name Role Phone Julisa Olvera MD Primary Care Provider [phone] Allergies Active Allergy Reactions Criticality Noted Date [...] is crucial. - Reviewed ED notes from [facility], unable to see radiology report - Pain [...] to establish care. Previous Primary Care: at [facility] Reviewed medical history and medications with patient. [...] and currently on Tirosint 75 mcg. - Formulation Chemist monitoring thyroid function. Osteoporosis 08/31/2025 Assessment & Plan (09/01/2025 12:48 PM EDT): - Formulation Chemist discussed medication options, she is currently not on medications. Scoliosis of thoracolumbar spine 06/29/2025 S/P lumbar fusion 06/29/2025 Strain of muscle, fascia and tendon of lower back, subsequent encounter 05/02/2025 Encounters Date Type Department Care Team Description 09/12/2025 9:30 AM EST Office Visit Internal Medicine - [place] [address] [place] [address] Julisa Olvera MD Fracture of left ninth rib (Primary Dx); White coat syndrome with diagnosis of hypertension 09/12/2025 Results Follow-Up [address] [phone] Alejandra De Luna MD 09/01/2025 10:00 AM EDT Office Visit Internal Medicine - [place] [address] [place] [address] Julisa Olvera MD Encounter to establish care (Primary Dx); Primary hypertension; Wedge compression fracture of T11-T12 vertebra, initial encounter for closed fracture (CMS/HCC V24, CMS/HCC V28); Osteoporosis, unspecified osteoporosis type, unspecified pathological fracture presence; Postablative hypothyroidism; Hyperlipidemia, unspecified hyperlipidemia type 08/31/2025 9:00 AM EDT Office Visit [address] [phone] Alejandra De Luna MD Postablative hypothyroidism (Primary Dx); Age-related osteoporosis with current pathological fracture with routine healing; Age-related osteoporosis with current pathological fracture, other site, initial encounter for fracture 06/28/2025 10:30 AM EDT Treatment Physical Therapy - [address] [phone] Cruzito Chavira, PT Strain of muscle, fascia [...] for your loved ones. For example, child adolescent psychiatrist or elderly care for an older adult? [...] 3:00 PM EST Office Visit Endocrinology - [place] [address] [place] [address] Alejandra De Luna MD [address] [place] [address] 11/21/2025 10:30 AM EST Office Visit Internal Medicine - [place] [address] [place] [phone] Julisa Olvera MD [address] [place] [address] Health Maintenance Due Date Last Done Comments Breast Cancer Screening 1955 Colorectal Cancer Screening: Colonoscopy 1955 Cholesterol Screening (Lipid Panel) 02/22/2025 Falls Risk Assessment 02/22/2025 Hepatitis C Screening 02/22/2025 Medicare Annual Wellness Visit 02/22/2025 Influenza Vaccine (#1) 2025 , 07/23/2023, 08/07/2022, Additional history exists COVID-19 Vaccine (2024- season) 2026 07/28/2025, 11/18/2024, 08/24/2023, Additional history [...] correct posture for 2 basic exercise positions. terminal gauger supervisor goals: (Time frame: 12 weeks) 1. Independent with the home exercise program-100% 2. Patient will be able to demonstrate conscious posture in sitting/standing/lying down > 70% of the day. 3. Patient will be able to demonstrate correct posture for all basic exercise positions. Procedures Procedure Name Priority Date/Time Associated Diagnosis Comments [place] PROTEIN ELECTROPHORETIC FRACTIONATION & QUANTITATION SERUM Routine [...] EDT) Pathologist Interpretation 09/07/2025 2:10 PM EDT [facility] Blood Venous blood specimen / Unknown Venipuncture / Unknown 09/04/2025 11:30 AM EDT 09/04/2025 11:30 AM EDT Alejandra De Luna MD LAB BLOOD ORDERABLES Final Result [facility] [address] [place] [address], * Collagen type 1, c-telopeptide (09/04/2025 11:30 AM EDT) Collagen Type 1, C-Telopeptide (CTx) 586 pg/mL 09/08/2025 4:44 PM EDT [facility] Comment: Reference Range for Females Premenopausal 121-747 pg/mL Postmenopausal 189-1003 pg/mL The assay and reference ranges were updated by the reed dipper, with new methodology effective December 20, 2024. Providers should consider this when comparing measurements before and after December 20, 2024 in the same patient. Test performed at [facility], [address] , [place] [address] Guerita Kuo MD, PhD - Broadband Technician Blood Venous blood specimen / Unknown Venipuncture / Unknown 09/04/2025 11:30 AM EDT 09/04/2025 11:30 AM EDT Alejandra De Luna MD LAB BLOOD ORDERABLES Final Result [facility] [address] [place] [address] * Vitamin D 25 hydroxy (09/04/2025 11:30 AM EDT) Vit D, 25-Hydroxy 31.4 30.0 - 80.0 ng/mL LAB CHEMISTRY METHOD 09/04/2025 5:26 PM EDT [facility] Blood Venous blood specimen / Unknown Venipuncture / Unknown 09/04/2025 11:30 AM EDT 09/04/2025 11:30 AM EDT Alejandra De Luna MD LAB BLOOD ORDERABLES Final Result Performing Organization Address City/[facility]/ZIP Co de Phone Number [facility] [address] [place] [address], [place] [phone] * Triiodothyronine free (09/04/2025 11:30 AM EDT) T3, Free 243 230 - 420 pcg/dL LAB CHEMISTRY METHOD 09/04/2025 6:25 PM EDT [facility] Blood Venous blood specimen / Unknown Venipuncture / Unknown 09/04/2025 11:30 AM EDT 09/04/2025 11:30 AM EDT Alejandra De Luna MD LAB BLOOD ORDERABLES Final Result [facility] [address] [place] [address], [place] [phone] * Thyroid stimulating hormone (09/04/2025 11:30 AM EDT) TSH 2.28 0.40 - 4.00 mcIU/mL LAB CHEMISTRY METHOD 09/04/2025 6:25 PM EDT [facility] Blood Venous blood specimen / Unknown Venipuncture / Unknown 09/04/2025 11:30 AM EDT 09/04/2025 11:30 AM EDT Alejandra De Luna MD LAB BLOOD ORDERABLES Final Result Performing Organization Address City/[facility]/ZIP Co de Phone Number [facility] [address] [place] [address], [place] [phone] * Thyroxine free (09/04/2025 11:30 AM EDT) Free T4 1.22 0.70 - 1.80 ng/dL LAB CHEMISTRY METHOD 09/04/2025 5:26 PM EDT [facility] Blood Venous blood specimen / Unknown Venipuncture / Unknown 09/04/2025 11:30 AM EDT 09/04/2025 11:30 AM EDT Alejandra De Luna MD LAB BLOOD ORDERABLES Final Result [facility] [address] [place] [address], [place] [phone] * (ABNORMAL) Protein electrophoresis, serum (09/04/2025 11:30 AM EDT) Total Protein 6.9 6.0 - 8.0 g/dL LAB CHEMISTRY METHOD 5 2:10 PM EDT [facility] Albumin, Serum 4.0 2.9 - 4.1 g/dL LAB CHEMISTRY METHOD 5 2:10 PM EDT [facility] Alpha 1 Globulin (g/dL) 0.2 0.1 - 0.5 g/dL LAB CHEMISTRY METHOD 2:10 PM EDT [facility] Alpha 2 Globulin (g/dL) 1.2 0.7 - 1.5 g/dL LAB CHEMISTRY METHOD 5 2:10 PM EDT [facility] Beta (g/dL) 1.0 0.7 - 1.5 g/dL LAB CHEMISTRY METHOD 5 2:10 PM EDT [facility] Gamma Globulin (g/dL) 0.5(L) 0.7 - 1.9 g/dL LAB CHEMISTRY METHOD 2:10 PM EDT [facility] SPEP Interpretation No M-Sanya seen. Hypogammaglobinemia. May be associated with lymphoproliferative disorder, immunoglobulin loss, or protein losing enteropathy. LAB CHEMISTRY METHOD 2:10 PM EDT [facility] Blood Venous blood specimen / Unknown Venipuncture / Unknown 09/04/2025 11:30 AM EDT 09/04/2025 11:30 AM EDT us Alejandra De Luna MD LAB BLOOD ORDERABLES Final Result [facility] [address] [place] [address], * Protein, total (09/04/2025 11:30 AM EDT) Total Protein 6.9 6.0 - 8.0 g/dL LAB CHEMISTRY METHOD 09/04/2025 5:31 PM EDT [facility] Blood Venous blood specimen / Unknown Venipuncture / Unknown 09/04/2025 11:30 AM EDT 09/04/2025 11:30 AM EDT us Alejandra De Luna MD LAB BLOOD ORDERABLES Final Result [facility] [address] [place] [address], [place] [phone] * Parathyroid hormone intact (09/04/2025 11:30 AM EDT) PTH 67.2 18.5 - 88.0 pcg/mL LAB CHEMISTRY METHOD 09/04/2025 5:26 PM EDT [facility] Blood Venous blood specimen / Unknown Venipuncture / Unknown 09/04/2025 11:30 AM EDT 09/04/2025 11:30 AM EDT Alejandra De Luna MD LAB BLOOD ORDERABLES Final Result Performing Organization Address City/[facility]/ZIP Co de Phone Number [facility] [address] [place] [address], [place] [phone] * Comprehensive metabolic panel (09/04/2025 11:30 AM EDT) Pathologist [facility] Sodium 141 133 - 145 mmol/L LAB CHEMISTRY METHOD 09/04/2025 5:00 PM [facility] Potassium 3.7 3.5 - 5.5 mmol/L LAB CHEMISTRY METHOD 09/04/2025 5:00 PM [facility] Chloride 105 96 - 110 mmol/L LAB CHEMISTRY METHOD 09/04/2025 5:00 PM [facility] CO2 27 21 - 32 mmol/L LAB CHEMISTRY METHOD 09/04/2025 5:00 PM [facility] Anion Gap 9 3 - 11 LAB CHEMISTRY METHOD 09/04/2025 5:00 PM [facility] Glucose 97 70 - 100 mg/dL LAB CHEMISTRY METHOD 09/04/2025 5:00 PM [facility] BUN 15 5 - 25 mg/dL LAB CHEMISTRY METHOD 09/04/2025 5:00 PM [facility] Creatinine 0.79 0.50 - 1.10 mg/dL LAB CHEMISTRY METHOD 09/04/2025 5:00 PM [facility] eGFR 81 >=60 mL/min/1. 73m2 LAB CHEMISTRY METHOD 09/04/2025 5:00 PM [facility] Comment:Calculation based on the Chronic Kidney Disease Epidemiology Collaboration (CKD-EPI) equation refit without adjustment for race. BUN/Creatinine Ratio 19.0 LAB CHEMISTRY METHOD 09/04/2025 5:00 PM [facility] Calcium 9.9 8.5 - 10.5 mg/dL LAB CHEMISTRY METHOD 09/04/2025 5:00 PM [facility] AST (SGOT) 20 10 - 42 unit/L LAB CHEMISTRY METHOD 09/04/2025 5:00 PM [facility] ALT (SGPT) 27 10 - 60 unit/L LAB CHEMISTRY METHOD 09/04/2025 5:00 PM [facility] Alkaline Phosphatase 87 42 - 121 unit/L LAB CHEMISTRY METHOD 09/04/2025 5:00 PM [facility] Total Protein 6.8 6.0 - 8.0 g/dL LAB CHEMISTRY METHOD 09/04/2025 5:00 PM [facility] Albumin 4.3 3.2 - 5.0 g/dL LAB CHEMISTRY METHOD 09/04/2025 5:00 PM [facility] Total Bilirubin 0.6 0.0 - 1.4 mg/dL LAB CHEMISTRY METHOD 09/04/2025 5:00 PM [facility] Blood Venous blood specimen / Unknown Venipuncture / Unknown 09/04/2025 11:30 AM EDT 09/04/2025 11:30 AM EDT Alejandra De Luna MD LAB BLOOD ORDERABLES Final Result [facility] [address] [place] [address], [place] [phone] * (ABNORMAL) Calcium, urine, 24H (09/04/2025 11:29 AM EDT) Calcium, Ur 14.0 mg/dL LAB CHEMISTRY METHOD 09/04/2025 3:41 PM EDT [facility] Calcium, 24H Urine 406(H) 50 - 400 mg/24 hr LAB CHEMISTRY METHOD 09/04/2025 3:41 PM EDT [facility] Urine Volume 2,900 mL LAB CHEMISTRY METHOD 09/04/2025 3:[facility] Collection Interval, Ur 24 hr LAB CHEMISTRY METHOD 09/04/2025 3:41 PM EDT [facility] Urine Urine specimen from urethra / Unknown Non-blood Collection / Unknown 09/04/2025 11:29 AM EDT 09/04/2025 11:29 AM EDT Alejandra De Luna MD LAB URINE ORDERABLES Final Result Performing Organization Address [facility]/ZIP Co de Phone Number [facility] [address] [place] [address], [place] [phone] * Creatinine, urine, 24H (09/04/2025 11:29 AM EDT) Creatinine, Urine 31.0 mg/dL LAB CHEMISTRY METHOD 09/04/2025 3:41 PM EDT [facility] Creatinine, 24H Ur 899 800 - 2,000 mg/24 Hr LAB CHEMISTRY METHOD 09/04/2025 3:41 PM EDT [facility] Urine Volume 2,900 mL LAB CHEMISTRY METHOD 09/04/2025 3:41 PM EDT [facility] Collection Interval, Ur 24 hr LAB CHEMISTRY METHOD 09/04/2025 3:41 PM EDT [facility] Urine Urine specimen from urethra / Unknown Non-blood Collection / Unknown 09/04/2025 11:29 AM EDT 09/04/2025 11:29 AM EDT us Alejandra De Luna MD LAB URINE ORDERABLES Final Result [facility] [address] [place] [address], [place] [phone] from Last 3 Months Insurance MEDICARE [facility] Care Teams Operation Shift Supervisor Relationship Specialty Start Date End Date Julisa Olvera MD [address] [place] [address] PCP - General Family Medicine 09/01/25
--- OUTSIDE RECORDS SUMMARY | 2025-09-22 17:28 | XMS_ITS | Encounter Summary ---
Author Organization [facility] Address [address] [place] [address] Phone Care Team Providers Care Toddler Teacher Name Role Phone Gillian Real MD Primary Care Provider [phone] Encounter Details Date Type Department Care Team (Late st Contact Info) Description 05/09/2025 Procedure Pass [facility] Endoscopy Admitting Dept Virtual Department [address] [place] [address] Social History Tobacco Use Types Packs/Day Years [...] on filedocumented in this encounter Care Teams Toddler Teacher Relationship Specialty [place] [address] [place] [address] PCP - General Internal Medicine 10/22/18 documented as of this encounter Additional Source Comments The information contained in this document represents components of the legal health record. It is not the complete legal health record.[facility]
--- OUTSIDE RECORDS SUMMARY | 2025-09-22 17:28 | XMS_ITS | Encounter Summary ---
Author Organization [facility] Address [address] [place] [address] Phone Care Team Providers Care High School Biology Teacher Name Role Phone Gillian Real MD Primary Care Provider [phone] Encounter Details Date Type Department Care Team (Late st Contact Info) Description 06/03/[address] - [address], [address] [place] [phone] Social History Tobacco Use Types Packs/Day Years [...] on filedocumented in this encounter Care Teams High School Biology Teacher Relationship Specialty Start Date End Date Gillian Real MD [address] [address] PCP - General Internal Medicine 10/22/18 documented as of this encounter Additional Source Comments The information contained in this document represents components of the legal health record. It is not the complete legal health record.[facility]
--- OUTSIDE RECORDS SUMMARY | 2025-09-22 17:28 | XMS_ITS | Data Portability ---
Author Organization [place] [facility] Address [address] [place] [phone] Care Team Providers Care Engagement Specialist Name Role Phone ELVIGALINDO TorrezSHIRAZ Primary Care [...] for cerumen removal, or sooner with concerns. [email or web address] Not available 06/08/2025 09:52:54 Plan of Treatment [...] Organization Details Recorded Time Posterior rhinorrhe a 98224503 Active 2016 Postnasal drip; Note: Date Diagnosed : 11/11/2016 8:56 AM (R09.82) Not Available [facility] 4 02:51:07 Gastroeso phageal reflux disease without esophagit is 835430103 Active 2016 Gastro-es ophageal reflux disease without esophagit is; Note: Date Diagnosed : 11/11/2016 9:00 AM (K21.9) Not Available [facility] 4 02:51:08 Impacted cerumen of bilateral ears 64604943469 15010 Active 2016 Impacted cerumen, bilateral ; Note: Date Diagnosed : 11/11/2016 8:55 AM (H61.23) Not Available [facility] 4 02:51:06 Abnormal auditory perceptio n 89786908 Active 2016 Other abnormal auditory perceptio ns, right ear; Note: Date Diagnosed : 11/11/2016 8:58 AM (H93.291) Not Available [facility] 4 02:51:06 Sensorine ural hearing loss of bilateral ears 446079541 Active 2019 Sensorine ural hearing loss, bilateral ; Note: Date Diagnosed : 05/23/2020 1:06 PM (H90.3) Not Available [facility] 4 02:51:10 Impacted cerumen in left ear 62313567780 00346 Active 2019 Impacted cerumen, left ear; Note: Date Diagnosed : 05/23/2020 1:29 PM (H61.22) Not Available [facility] 4 02:51:08 Temporoma ndibular joint disorder 25555823 Active 2019 Other specified disorders of temporoma ndibular joint; Note: Date Diagnosed : 06/01/2020 2:59 PM (M26.69) Not Available [facility] 4 02:51:10 Disorder of right Eustachia n tube 05905652433 99742 Active 2019 Other specified disorders of Eustachia n tube, right ear; Note: Date Diagnosed : 06/01/2020 2:52 PM (H69.81) Not Available [facility] 4 02:51:10 Problem Notes None recorded. Procedures Surgical History Date Name Laterality Status Provider Name and Address Organization Details Recorded Time 5 Cerumen removal without microscope bilat completed JAMAL TOMLINSON PA-C [address] [facility] [place],[address], [place], [address], [facility] 06/08/2025 09:10:33 4 Cerumen removal without microscope bilat completed JAMAL TOMLINSON PA-C [address] [facility],[address], [place], [address], [facility] 07/06/2024 09:08:52 Imaging Results None recorded. Procedure Notes None recorded. Medical Equipment None Reported. Allergies Allergen ID Allergen Name Allergen Category Reaction Reaction Severity Criticality Documentation Date Start Date Code Code System Note Provider Name and Address Organization Details Recorded Time 100597 prednison e medicatio n other Not available Not available 03/22/2024 8640 RxNorm React ion: unkno wn, unspe cifie d;; Not Available [facility] 4 01:12:57 647168 Non-stero idal anti-infl ammatory agent (substanc e) medicatio n other Not available Not available 03/22/2024 47458 5008 SNOMED React ion: unkno wn, unspe cifie d;; Not Available [facility] 4 01:13:00 Medications Name Sig Start Date [...] mg tablet 2016 active Medicati on ID: 579090 B rand Name: lisinopr il Send Method: [...] mg) tablet 2016 active Medicati on ID: 154208 B rand Name: Calcium 500 Send Method: E-Prescr ibed Sub s Allowed: [facility] [place] [facility] Calcium 500 Not Available Not [...] unit) capsule 2016 active Medicati on ID: 814221 B rand Name: Vitamin D3 Send Method: E-Prescr ibed Sub s Allowed: subs [place] Medic [facility] ericName : Vitamin D3 Not Available Not Available Not Available Vitals Date Recorded Body height Body mass index (BMI) Body weight Provider Name and Address Organization Details Last Updated DateTime 06/08/2025 160.02 cm 26 kg/m2 96392.08 g Nereyda Liang [facility] 06/08/2025 09:21:06 Date Recorded Body height Body mass index (BMI) Body weight Provider Name and Address Organization Details Last Updated DateTime 07/06/2024 160.02 cm 26 kg/m2 31096.08 g Nereyda Liang [facility] 07/06/2024 09:08:38 Social History None recorded. Functional Status None recorded. Mental Status None recorded. Family History Nothing Reported. Medical History No medical history recorded. Gynecological HistoryNo gynecological history recorded. Obstetrics History GPAL:G 0 P 0 0 0 0 Past Encounters Encounter ID Performer Location Encounter Start Date Encounter Closed Date Diagnosis/Indication Diagnosis SNOMED-CT Code Diagnosis ICD10 Code Diagnosis IMO Codes Diagnosis Note [id number] JAMAL TOMLINSON PA-C [facility] [address] [place] [address] 07/06/2024 08:58:52 07/06/2024 09:21:42 Impacted cerumen of bilateral ears [id number] 035118 H61.23 [id number] JAMAL TOMLINSON PA-C [facility] [address] [place] [address] 06/08/2025 08:56:24 06/08/2025 09:41:38 Impacted cerumen of bilateral ears 6856088136 657259 H61.23 Health Concerns Section Related Observation LastModified by Organization Detai ls LastModified Time None Recorded Concern Status LastModified by Organization Details LastModified Time None Recorded Advance Directives Directive None Recorded Payers Insurance Date Sequence Insurance Name Policy Number Policy Camara Covered Member ID Camara Member ID Guarantor Name 06/08/2025 2 [facility] Nancy L [place] [id number] Nancy L [place] 06/08/2025 1 [place] Nancy L [place] [id number] Nancy L [place] 06/11/2025 2 [place] [id number] Nancy L [place] [id number] Nancy L [place] Notes Date Note Type Note Provider Name and Address Organization Details Recorded Time 07/06/2024 text/html ROS as noted in the HPI 68 year old female presents for cerumen removal. No concerns today. DAQUAN ULLOA MD [address] [place] [address],[address], [phone], [facility] - [facility] 07/06/2024 12:55:55 06/08/2025 text/html ROS as noted in the [facility] 69 year old female presents for cerumen removal. Reports intermittent ear blockage, but denies otalgia, otorrhea, or changes in her hearing. MONIK BONE MD [address] [place] [address],[address], [address], [facility] 06/08/2025 19:54:07 OBGyn Episode No OBEpisode recorded.
--- OUTSIDE RECORDS SUMMARY | 2025-09-22 17:29 | XMS_ITS | Patient Health Record ---
[facility] Address [address] [place] [address] Care Team Providers Care Excavating Supervisor Name Role Phone Gillian Real MD Primary Care Provider Viktoria Cruz Unavailable [phone] Allergies Allergen (clinical drug ingredient) Drug/Non Drug [...] Problem Acquired hammer toe of right foot ([id number] [id number]) Other hammer toe(s) (acquired), right foot (M20.41) Active confirmed Plan Of Treatment Pending Test Test Name Order Date [id number] NAIL, 1-5 04/05/2019 Insurance Providers Payer Name Payer Address Payer Phone Subscriber Number Group Number Insured Name Patient Relationship to Insured Coverage Start Date Coverage End Date [facility] [address] [facility] [place], [place] [id number] Nancy Espinoza Self - patient is the insured Medical (General) History Medical History History ICD Code High blood pressure Surgical History Surgery Date(Month/Year) shoulder surgery 2006
--- OUTSIDE RECORDS SUMMARY | 2025-09-22 17:29 | XMS_ITS | Clinical Summary ---
Author Organization [facility] Address [address] [place] [id number] Phone Care Team Providers Care Manager Compensation Name Role Phone Gillian Real MD Primary Care Provider [phone] Social History Tobacco Use Types Packs/Day Years [...] file Insurance MEDICARE PART A & B [facility] MEDEX SUPPLEMENT MEDICARE PART A & B [facility] MEDEX SUPPLEMENT MEDICARE PART A & B [employer] SUPPLEMENT MEDICARE PART A & B [employer] SUPPLEMENT MEDICARE PART A & B [employer] SUPPLEMENT MEDICARE PART A & B [employer] SUPPLEMENT MEDICARE PART A & B [employer] SUPPLEMENT MEDICARE PART A & B [employer] SUPPLEMENT MEDICARE PART A & B [employer] SUPPLEMENT MEDICARE PART A & B [employer] MEDEX SUPPLEMENT Care Teams Manager Compensation Relationship Specialty Start Date End Date Gillian Real MD [address] [place] [address] PCP - General Internal Medicine 10/22/18 Additional Source Comments The information contained in this document represents components of the legal health record. It is not the complete legal health record[facility]
== END 2025-09-22 13:13 | disposition home or self-care (01) ==
LOC: HO.HNS 11:20
PROVIDERS: Visit Provider Physician Assistant
DX: M41.20 Other idiopathic scoliosis, site unspecified (principal)
CPT/HCPCS: 99213

== ENCOUNTER → 2025-09-22 11:20 | Outpatient (BNVA) | payer MEDICARE, SELFPAY | PROVIDERS: Visit Provider Physician Assistant | DX: M41.20 Other idiopathic scoliosis, site unspecified (principal) | CPT/HCPCS: 99212 ==